=== PATIENT | female | born 1995 | race African-American/Black ===

== ENCOUNTER 2016-12-01 17:33 | Emergency (ER) | payer OTHER ==
--- NOTE | 2016-12-01 17:44 | PDOC ---
History of Present Illness - History of Present Illness Initial Comments: 12/01/16 18:08 Patient is a 21 year old female (7 weeks, LNMP 10/05/16) with no significant medical hx who is presenting to the ED with nausea and vomiting for one week. The patient endorses five episodes of vomiting today and three yesterday. She also complains of some chills but no fever, diarrhea, vaginal bleeding, or discharge. The patient notes that she often has bouts of gastritis that normally occur outside of . CARD PUNCHER: Located at [facility] in [place] No PMD, the patient moved here from [place] 2.5 years ago. Social Hx: Denies Alcohol, tobacco, and recreational drug use. /M1 (miscarriage 07/2016) <Nancy Ramsey - Last Filed: 12/01/16 18:08> <Danae Linn - Last Filed: 12/01/16 22:43> - General Chief Complaint: Pain Stated Complaint: ABD PAIN Time Seen by Provider: 12/01/16 17:41 Past History <Nancy Ramsey - Last Filed: 12/01/16 18:08> - Psycho/Social/Smoking Cessation Hx Suicidal Ideation: No Smoking History: Never smoked <Danae Linn - Last Filed: 12/01/16 22:43> - Past Medical History Allergies/Adverse Reactions: Allergies Allergy/AdvReac Type Severity Reaction Status Date / Time No Known Allergies Allergy Verified 12/01/16 17:58 Home Medications: Ambulatory Orders Ondansetron [Zofran Odt -] 4 mg SL TID PRN #21 od.tablet 12/01/16 Review of Systems - Review of Systems Comments:: 12/01/16 18:14 CONSTITUTIONAL: Reported: chills Absent: fever, diaphoresis, generalized weakness, malaise, loss of appetite HEENT: Absent: rhinorrhea, nasal congestion, throat pain, throat swelling, difficulty swallowing, mouth swelling, ear pain, eye pain, visual changes CARDIOVASCULAR: Absent: chest pain, syncope, palpitations, irregular heart rate, lightheadedness , peripheral edema RESPIRATORY: Absent: cough, shortness of breath, dyspnea with exertion, orthopnea, wheezing, stridor, hemoptysis GASTROINTESTINAL: Reported: nausea, vomiting Absent: abdominal pain, abdominal distension, diarrhea, constipation, melena, hematochezia GENITOURINARY: Absent: dysuria, frequency, urgency, hesitancy, hematuria, flank pain, genital pain MUSCULOSKELETAL: Absent: myalgia, arthralgia, joint swelling SKIN: Absent: rash, itching, pallor HEMATOLOGIC/IMMUNOLOGIC: Absent: easy bleeding, easy bruising, lymphadenopathy, frequent infections ENDOCRINE: Absent: unexplained weight gain, unexplained weight loss, heat intolerance, cold intolerance NEUROLOGIC: Absent: headache, focal weakness or paresthesia, dizziness, unsteady gait, seizure, mental status changes, bladder or bowel incontinence. PSYCHIATRIC: Absent: anxiety, depression, suicidal or homicidal ideation, hallucinations <Nancy Ramsey - Last Filed: 12/01/16 18:08> *Physical Exam - Vital Signs Last Vital Signs Temp Pulse Resp BP Pulse Ox 99.0 F 93 H 18 134/53 100 12/01/16 17:33 12/01/16 17:33 12/01/16 17:33 12/01/16 17:33 12/01/16 17:33 - Physical Exam Comments: 12/01/16 18:15 GENERAL: Well developed, well nourished. Awake and alert. No acute distress. HEENT: Normocephalic, atraumatic. PERRLA, EOMI. No conjunctival pallor. Sclera are non- icteric. Dry mucous membranes. Oropharynx is clear. NECK: Supple. Full ROM. No JVD. Carotid pulses 2+ and symmetric, without bruits. No thyromegaly. No lymphadenopathy. CARDIOVASCULAR: Regular rate and rhythm. No murmurs, rubs, or gallops. Distal pulses are 2+ and symmetric. PULMONARY: No evidence of respiratory distress. Lungs clear to auscultation bilaterally. No wheezing, rales or rhonchi. ABDOMINAL: Soft. Non-tender. Non-distended. No rebound or guarding. No organomegaly. Normoactive bowel sounds. MUSCULOSKELETAL: Normal range of motion at all joints. No bony deformities or tenderness. No CVA tenderness. EXTREMITIES: No cyanosis. No clubbing. No edema. No calf tenderness. SKIN: Warm and dry. Normal capillary refill. No rashes. No jaundice. NEUROLOGICAL: Alert, awake, appropriate. Cranial nerves 2-12 intact. Normal speech. Gait is normal without ataxia. PSYCHIATRIC: Cooperative. Good eye contact. Appropriate mood and affect. <Nancy Ramsey - Last Filed: 12/01/16 18:08> ED Treatment Course - LABORATORY CBC & Chemistry Diagram: 12/01/16 18:21 12/01/16 18:21 <Danae Linn - Last Filed: 12/01/16 22:43> Medical Decision Making - Medical Decision Making 12/01/16 21:48 21-year-old female presents with vomiting this week. She vomited 3-5 times each day. Her last menstrual period was at the end of September. She received IV fluids, antiemetics and has not vomited since arrival 12/01/16 21:59 I spoke with the radiologist Dr Wiggins and the ultrasound showed a SL IUP of 8 weeks with heart tones of 155 bpm <Danae Linn - Last Filed: 12/01/16 22:43> *DC/Admit/Observation/Transfer - Attestations Scribe Attestion: 12/01/16 18:15 Documentation prepared by Nancy Ramsey, acting as auditor medical claims for Danae Linn MD. <Nancy Ramsey - Last Filed: 12/01/16 18:08> <Danae Linn - Last Filed: 12/01/16 22:43> Diagnosis at time of Disposition: Hyperemesis gravidarum - Discharge Dispostion Disposition: HOME Condition at time of disposition: Stable - Prescriptions Prescriptions: Ondansetron [Zofran Odt -] 4 mg SL TID PRN #21 od.tablet PRN Reason: Nausea And/Or Vomiting - Patient Instructions Printed Discharge Instructions: DI for Hyperemesis Gravidarum Additional Instructions: please keep your appointment with your medical affairs director this week
[2016-12-01] MEDS ORDERED: SODIUM CHLORIDE 1,000 ML IV STA (17:53)
[2016-12-01] MEDS ORDERED: ONDANSETRON 4 MG/2 ML VIAL IVPB ONE (17:53)
[2016-12-01 17:58] VITALS: BMI 18.2
[2016-12-01] MEDS ORDERED: ONDANSETRON 4 MG/2 ML VIAL ONE (18:04)
[2016-12-01 18:38] LABS: BASOPHIL 0.3 % (0-2.0); MCH 26.4 pg (25.7-33.7); MCHC 32.1 g/dl (32.0-36.0); MEAN CELL VOLUME 82.2 fl (80-96); MEAN PLT VOLUME 9.3 fl (7.5-11.1); NEUTROPHILS 82.1 % (42.8-82.8); PLATELET COUNT 293 K/MM3 (134-434); RDW 12.9 % (11.6-15.6); WHITE BLOOD COUNT 16.2 K/mm3 (4.0-10.0)
[2016-12-01 19:06] LABS: URINE APPEARANCE SLCLOUDY; URINE BILIRUBIN NEGATIVE (NEGATIVE); URINE BLOOD NEGATIVE (NEGATIVE); URINE COLOR YELLOW; URINE GLUCOSE (UA) NEGATIVE (NEGATIVE); URINE KETONE 2+ (NEGATIVE); URINE LEUK ESTERASE NEGATIVE (NEGATIVE); URINE NITRITE NEGATIVE (NEGATIVE); URINE UROBILINOGEN NEGATIVE E.U./dl (0.2-1.0)
[2016-12-01 19:08] LABS: ALBUMIN 4.4 g/dl (3.4-5.0); ANION GAP 11 (8-16); BILIRUBIN,TOTAL 0.7 mg/dL (0.2-1.0); CALCIUM 9.4 mg/dL (8.5-10.1); CO2 24 mmol/L (21-32); CREATININE 0.7 mg/dL (0.55-1.02); GLUCOSE,RANDOM 106 mg/dL (74-106); SGOT/AST 21 U/L (15-37); SGPT/ALT 16 U/L (12-78); TOT PROT 7.9 g/dl (6.4-8.2)
[2016-12-01 19:09] LABS: ALK PHOS 49 U/L (45-117)
[2016-12-01 19:53] LABS: URINE PROTEIN 1+ (NEGATIVE)
[2016-12-01 20:39] LABS: URINE MUCUS RARE; URINE RBC 8 /hpf (0-3); URINE WBC 4 /hpf (3-5)
[2016-12-01 21:57] VITALS: BP 102/64; PULSE 89; TEMP 98
== END 2016-12-01 22:00 | disposition home or self-care (01) ==
LOC: JER 17:33
PROC: 3E0337Z Introduction of Electrolytic and Water Balance Substance into Peripheral Vein, Percutaneous Approach (ICD-10-PCS; principal; 2016-12-01)
PROC: 3E033GC Introduction of Other Therapeutic Substance into Peripheral Vein, Percutaneous Approach (ICD-10-PCS; 2016-12-01)
DX: O21.0 Mild hyperemesis gravidarum (principal); Z3A.08 8 weeks gestation of pregnancy
CPT/HCPCS: 36415; 76801-TC; 80053; 81003; 81015; 83690; 84702; 85025; 99282-25

== ENCOUNTER 2016-12-02 21:44 | Emergency (ER) | payer OTHER ==
[2016-12-02 21:55] VITALS: BP 127/77; PULSE 85; TEMP 98.7; BMI 18.2
--- NOTE | 2016-12-02 22:02 | PDOC ---
History of Present Illness - General History Source: Patient Exam Limitations: No Limitations - History of Present Illness Initial Comments: 12/02/16 22:21 The patient is a 21 year old female (8 weeks, A1, miscarriage 2015) with significant past medical history of depression who presents to the ED for persistent nausea and vomiting. Patient was seen yesterday for 1 week of nausea and persistent vomiting, where she had a ultrasound that revealed SL IUP of 8 weeks with heart tones of 155 bpm. She was treated and discharged with zofran and to follow up with video game script writer. Patient returns today for persistent nausea and vomiting. States she had 5 episodes of vomiting today. Took zofran around 7pm with improvement. She also has complaints of no appetite, chills and diaphoresis. No reported fever. Patient reports feeling depressed and sad, which she states is normal for her because she normally experiences intermittent episodes of depression since she was the age of 16. Her partner is currently at bedside. Denies homicidal or suicidal ideation. The patient denies cough, SOB, chest pain, palpitations, abdominal pain and diarrhea. The patient denies dysuria, hematuria, urgency, frequency and vaginal bleeding/ discharge. LMP was 10/05/16 Allergies: NKDA Social History: No alcohol, tobacco, or drug use reported. Past Surgical History: None reported No PMD, the patient moved here from [place] 2.5 years ago POT PUNCHER: Located at [facility] in [place] <Yary Murray - Last Filed: 12/02/16 22:21> - General History Source: Patient <John Vincent - Last Filed: 12/03/16 00:04> - General Chief Complaint: Weakness Stated Complaint: WEAKNESS Time Seen by Provider: 12/02/16 21:55 Past History <Yary Murray - Last Filed: 12/02/16 22:21> - Past Medical History Anemia: No Asthma: No - Psycho/Social/Smoking Cessation Hx Anxiety: No Suicidal Ideation: No Smoking History: Never smoked Have you smoked in the past 12 months: No Information on smoking cessation initiated: No Hx Alcohol Use: No Drug/Substance Use Hx: No Substance Use Type: None <John Vincent - Last Filed: 12/03/16 00:04> - Past Medical History Allergies/Adverse Reactions: Allergies Allergy/AdvReac Type Severity Reaction Status Date / Time No Known Allergies Allergy Verified 12/02/16 21:51 Home Medications: Ambulatory Orders Ondansetron [Zofran Odt -] 4 mg SL TID PRN #21 od.tablet 12/01/16 Metoclopramide HCl [Reglan -] 10 mg PO TID #30 tablet 12/03/16 Review of Systems - Review of Systems Able to Perform ROS?: Yes Comments:: 12/02/16 22:22 CONSTITUTIONAL: +decreased appetite, chills, diaphoresis Absent: fever, no fatigue EYES: Absent: visual changes ENT: Absent: ear pain, no sore throat CARDIOVASCULAR: Absent: chest pain, no palpitations RESPIRATORY: Absent: cough, no SOB GI: +nausea, vomiting Absent: abdominal pain, no constipation, no diarrhea GENITOURINARY: Absent: dysuria, no frequency, no hematuria MUSCULOSKELETAL: Absent: back pain, no arthralgia, no myalgia SKIN: Absent: rash NEURO: Absent: headache PSYCHIATRIC: +depression Absent: anxiety,suicidal or homicidal ideation. <Yary Murray - Last Filed: 12/02/16 22:21> *Physical Exam - Vital Signs Last Vital Signs Temp Pulse Resp BP Pulse Ox 98.7 F 85 18 127/77 100 12/02/16 21:48 12/02/16 21:48 12/02/16 21:48 12/02/16 21:48 12/02/16 21:48 - Physical Exam Comments: 12/02/16 22:22 GENERAL: Well-appearing, well-nourished. No apparent distress. HEENT: Normocephalic, atraumatic. PERRL, EOM intact. CARDIOVASCULAR: Normal S1, S2. Regular rate and rhythm. PULMONARY: Clear to auscultation bilaterally. ABDOMEN: Soft, non-distended, non-tender. EXTREMITIES: Normal ROM in all four extremities. No gross deformities. SKIN: Warm, dry. No rash NEUROLOGICAL: No focal neurological deficits. PSYCHIATRIC: Cooperative. Good eye contact. Appropriate mood and affect. <Yary Murray - Last Filed: 12/02/16 22:21> - Vital Signs Last Vital Signs Temp Pulse Resp BP Pulse Ox 98.7 F 85 18 127/77 100 12/02/16 21:48 12/02/16 21:48 12/02/16 21:48 12/02/16 21:48 12/02/16 21:48 <John Vincent - Last Filed: 12/03/16 00:04> ED Treatment Course - LABORATORY CBC & Chemistry Diagram: 12/02/16 22:33 12/02/16 22:33 <John Vincent - Last Filed: 12/03/16 00:04> Medical Decision Making - Medical Decision Making 12/03/16 00:02 Dr. Vincent: The scribe's documentation has been prepared under my direction and personally reviewed by me in its entirery. I confirm that the note above accurately reflects all work, treatment, procedures, and medical decision making performed by me. <John Vincent - Last Filed: 12/03/16 00:04> *DC/Admit/Observation/Transfer - Attestations Scribe Attestion: 12/02/16 22:22 Documentation prepared by Yary Murray, acting as medical pathology teacher for John Vincent MD <Yary Murray - Last Filed: 12/02/16 22:21> - Discharge Dispostion Admit: No <John Vincent - Last Filed: 12/03/16 00:04> Diagnosis at time of Disposition: Hyperemesis gravidarum - Discharge Dispostion Disposition: HOME Condition at time of disposition: Stable - Referrals Referrals: STAFF,NOT ON [Primary Care Provider] - Beto Cavazos MD [Staff Physician] - - Patient Instructions Printed Discharge Instructions: DI for Hyperemesis Gravidarum Additional Instructions: Please follow up with your doctor or the doctor referred to you in the ER. Take medications as directed. Follow up with a therapist as soon as possible
[2016-12-02] MEDS ORDERED: SODIUM CHLORIDE 1,000 ML IV STA ×2 (22:15)
[2016-12-02 22:41] LABS: BASOPHIL 0.4 % (0-2.0); EOSINOPHIL 0.5 % (0-4.5); MCH 26.4 pg (25.7-33.7); MCHC 32.3 g/dl (32.0-36.0); MEAN CELL VOLUME 81.9 fl (80-96); MEAN PLT VOLUME 8.6 fl (7.5-11.1); NEUTROPHILS 71.4 % (42.8-82.8); PLATELET COUNT 214 K/MM3 (134-434); RDW 12.9 % (11.6-15.6)
[2016-12-02 23:28] LABS: COCKROFT - GAULT 107.525; CREATININE 0.6 mg/dL (0.55-1.02); GLUCOSE,RANDOM 81 mg/dL (74-106)
[2016-12-02 23:29] LABS: ALBUMIN 3.7 g/dl (3.4-5.0); ALK PHOS 42 U/L (45-117); ANION GAP 14 (8-16); BILIRUBIN,TOTAL 0.5 mg/dL (0.2-1.0); CO2 24 mmol/L (21-32); SGOT/AST 14 U/L (15-37); SGPT/ALT 16 U/L (12-78); TOT PROT 6.8 g/dl (6.4-8.2)
[2016-12-02] MEDS ORDERED: POTASSIUM CHLORIDE TABS 20 MEQ TABLET.ER (FP) PO ONE (23:57)
[2016-12-03] MEDS ORDERED: POTASSIUM CHLORIDE TABS 20 MEQ TABLET.ER (FP) PO ONE (00:11)
== END 2016-12-03 00:15 | disposition home or self-care (01) ==
LOC: SUPCPDRO 21:44 → JER 21:44
PROC: 3E0337Z Introduction of Electrolytic and Water Balance Substance into Peripheral Vein, Percutaneous Approach (ICD-10-PCS; principal; 2016-12-02)
DX: O21.0 Mild hyperemesis gravidarum (principal); Z3A.08 8 weeks gestation of pregnancy
CPT/HCPCS: 36415; 80053; 83690; 83735; 85025; 86850; 86900; 86901; 99284-25

== ENCOUNTER 2016-12-24 20:51 | Emergency (ER) | payer OTHER ==
[2016-12-24 21:03] VITALS: BMI 17.2
--- NOTE | 2016-12-24 21:49 | PDOC ---
History of Present Illness - General Chief Complaint: Nausea/Vomiting Stated Complaint: WEAKNESS Time Seen by Provider: 12/24/16 21:18 - History of Present Illness Initial Comments: 12/24/16 21:48 21 yo F with recent miscarriage currently 11 weeks by LMP, here wtih nausea, vomiting and today had a syncopal episode. no mod factors. no urinary complaints. was feeling lightheaded just prior., did not hit head. breif LOC. Past History - Past Medical History Allergies/Adverse Reactions: Allergies Allergy/AdvReac Type Severity Reaction Status Date / Time No Known Allergies Allergy Verified 12/24/16 22:34 Home Medications: Ambulatory Orders Ondansetron [Zofran Odt -] 4 mg SL TID PRN #21 od.tablet 12/01/16 Anemia: No Asthma: No - Reproductive History (#): 2 Para: 0 Spontaneous : 1 - Psycho/Social/Smoking Cessation Hx Anxiety: No Suicidal Ideation: No Smoking History: Never smoked Have you smoked in the past 12 months: No Hx Alcohol Use: No Drug/Substance Use Hx: No Substance Use Type: None Review of Systems - Review of Systems Constitutional: No: Chills, Diaphoresis, Fever HEENTM: No: Eye Pain Respiratory: No: Cough, Orthopnea, Shortness of Breath ABD/GI: Yes: Nausea, Vomiting. No: Abdominal Distended, Difficulty Swallowing, Poor Appetite : No: Burning, Dysuria, Discharge Integumentary: No: Bruising Neurological: No: Headache, Numbness Psychiatric: No: Frequent Crying All Other Systems: Reviewed and Negative *Physical Exam - Vital Signs Last Vital Signs Temp Pulse Resp BP Pulse Ox 99.5 F 101 H 18 120/67 100 12/24/16 21:01 12/24/16 21:01 12/24/16 21:01 12/24/16 21:01 12/24/16 21:01 - Physical Exam General Appearance: Yes: Appropriately Dressed HEENT: positive: EOMI Neck: positive: Trachea midline Respiratory/Chest: positive: Lungs Clear, Normal Breath Sounds Cardiovascular: positive: Regular Rhythm, Regular Rate, S1, S2 Gastrointestinal/Abdominal: positive: Normal Bowel Sounds. negative: Tender, Flat, Soft Integumentary: positive: Normal Color, Dry, Warm Neurologic: positive: pumper head II-XII NML intact, Fully Oriented, Alert, Normal Mood/ Affect ED Treatment Course - LABORATORY CBC & Chemistry Diagram: 12/24/16 22:30 12/24/16 22:32 Medical Decision Making - Medical Decision Making 12/24/16 21:50 21 yo F currently 11 weeks here with intractable n/v and syncope. differential: hyperemesis, electrolyte abnormality, dehydration hypokalemia, acidosis. plan labs hydration antiemetics, iv hydration reassess. possible admission if unable to tolerate PO. 12/25/16 01:15 pt feeling improved. dc home tolerating PO. hydrated with IVF. has appointment for followup with OB tomrrow am. *DC/Admit/Observation/Transfer Diagnosis at time of Disposition: Hyperemesis - Discharge Dispostion Disposition: HOME Condition at time of disposition: Improved - Patient Instructions Printed Discharge Instructions: DI for Vomiting -- Adult
[2016-12-24] MEDS ORDERED: SODIUM CHLORIDE 1,000 ML IV STA (21:53)
[2016-12-24] MEDS ORDERED: ONDANSETRON 4 MG/2 ML VIAL IVPUSH ONE (21:54)
[2016-12-24] MEDS ORDERED: ONDANSETRON 4 MG/2 ML VIAL ONE (22:22)
[2016-12-24 22:51] LABS: BASOPHIL 0.2 % (0-2.0); EOSINOPHIL 0.2 % (0-4.5); MCH 26.1 pg (25.7-33.7); MCHC 32.6 g/dl (32.0-36.0); NEUTROPHILS 78.3 % (42.8-82.8); PLATELET COUNT 246 K/MM3 (134-434); RDW 13.1 % (11.6-15.6); WHITE BLOOD COUNT 12.4 K/mm3 (4.0-10.0)
[2016-12-24 23:43] LABS: URINE APPEARANCE SLCLOUDY; URINE BILIRUBIN NEGATIVE (NEGATIVE); URINE BLOOD NEGATIVE (NEGATIVE); URINE COLOR YELLOW; URINE GLUCOSE (UA) NEGATIVE (NEGATIVE); URINE KETONE 2+ (NEGATIVE); URINE NITRITE NEGATIVE (NEGATIVE); URINE UROBILINOGEN NEGATIVE E.U./dl (0.2-1.0)
[2016-12-25] MEDS ORDERED: ONDANSETRON 4 MG/2 ML VIAL IVPUSH ONE (00:11)
[2016-12-25] MEDS ORDERED: ONDANSETRON 4 MG/2 ML VIAL ONE (00:57)
[2016-12-25 00:58] LABS: ALBUMIN 4.2 g/dl (3.4-5.0); ANION GAP 13 (8-16); BILIRUBIN,TOTAL 0.6 mg/dL (0.2-1.0); CALCIUM 9.3 mg/dL (8.5-10.1); CO2 28 mmol/L (21-32); COCKROFT - GAULT 86.8105; CREATININE 0.7 mg/dL (0.55-1.02); GLUCOSE,RANDOM 84 mg/dL (74-106); SGOT/AST 19 U/L (15-37); SGPT/ALT 14 U/L (12-78); TOT PROT 7.4 g/dl (6.4-8.2)
[2016-12-25 00:59] LABS: ALK PHOS 46 U/L (45-117)
[2016-12-25 01:06] LABS: URINE LEUK ESTERASE 1+ (NEGATIVE); URINE PROTEIN 2+ (NEGATIVE)
[2016-12-25 01:21] VITALS: BP 122/74; PULSE 80; TEMP 98.8
[2016-12-25 02:07] LABS: URINE BACTERIA RARE /hpf (NONE SEEN); URINE MUCUS MODERATE; URINE RBC 4 /hpf (0-3); URINE WBC 27 /hpf (3-5)
[2016-12-25 02:12] LABS: ACETONE SERUM NEGATIVE (NEGATIVE)
== END 2016-12-25 01:21 | disposition home or self-care (01) ==
LOC: JER 20:51
PROC: 3E033GC Introduction of Other Therapeutic Substance into Peripheral Vein, Percutaneous Approach (ICD-10-PCS; principal; 2016-12-24)
DX: O21.0 Mild hyperemesis gravidarum (principal); Z3A.11 11 weeks gestation of pregnancy
CPT/HCPCS: 36415; 80053; 81003; 81015; 82009; 84702; 85025; 99282-25

== ENCOUNTER 2017-01-06 07:13 | Emergency (ER) | payer OTHER ==
[2017-01-06 07:21] VITALS: TEMP 98.3; BMI 17.6
[2017-01-06] MEDS ORDERED: ONDANSETRON 4 MG/2 ML VIAL IVPUSH ONE ×2 (07:39→09:47)
[2017-01-06] MEDS ORDERED: ONDANSETRON 4 MG/2 ML VIAL ONE ×2 (07:45→10:07)
[2017-01-06] MEDS ORDERED: DEXTROSE 5%-0.45% SALINE 1,000 ML IV SCH (07:45)
--- NOTE | 2017-01-06 07:45 | PDOC ---
History of Present Illness - General Chief Complaint: Weakness Stated Complaint: 13 WEEKS PREG, NEAR SYNCOPE Time Seen by Provider: 01/06/17 07:27 History Source: Patient - History of Present Illness Timing/Duration: reports: constant Past History - Past Medical History Allergies/Adverse Reactions: Allergies Allergy/AdvReac Type Severity Reaction Status Date / Time No Known Allergies Allergy Verified 01/06/17 07:18 Home Medications: Ambulatory Orders Metoclopramide HCl [Reglan] 10 mg PO Q8H #20 tablet 01/06/17 Anemia: No Asthma: No Other medical history: DENIES - Reproductive History (#): 2 Para: 0 Spontaneous : 1 - Psycho/Social/Smoking Cessation Hx Anxiety: No Suicidal Ideation: No Smoking History: Never smoked Have you smoked in the past 12 months: No Hx Alcohol Use: No Drug/Substance Use Hx: No Substance Use Type: None Review of Systems - Review of Systems Constitutional: No: Chills, Fever ABD/GI: Yes: Nausea, Vomiting. No: Abdominal cramping : No: Burning, Hematuria *Physical Exam - Vital Signs Last Vital Signs Temp Pulse Resp BP Pulse Ox 98.3 F 98 H 20 128/67 100 01/06/17 07:15 01/06/17 07:15 01/06/17 07:15 01/06/17 07:15 01/06/17 07:15 - Physical Exam General Appearance: Yes: Appropriately Dressed. No: Apparent Distress HEENT: positive: Normal Voice Neck: positive: Supple Respiratory/Chest: negative: Respiratory Distress Cardiovascular: positive: Regular Rate, S1, S2 Gastrointestinal/Abdominal: positive: Soft. negative: Tender Integumentary: positive: Dry, Warm Neurologic: positive: Fully Oriented, Alert, Normal Mood/Affect ED Treatment Course - LABORATORY CBC & Chemistry Diagram: 01/06/17 08:15 01/06/17 08:15 Medical Decision Making - Medical Decision Making 01/06/17 07:40 21-year-old female, (1 spon ab), approximately 13 weeks with care demonstrating + IUP, multiple ED visits for hyperemesis, on Zofran at home, which does not help with symptoms and unable to afford diclegis , now returns with n/v. As per patient continues to have ~3-4 e/o n/v on a daily basis and barely able to tolerate po. This a.m. awoke feeling generally weak and dizzy and felt like she was going to pass out but did not. Denies any acute abdominal pain, dysuria, vaginal bleeding, fever or chills. No CP or SOB. Scheduled for next in one week. States when she comes to ED and gets IV meds, that she usually feels significantly better See exam 1st trimester w/ hyperemesis/dehydration Multiple ED visits for same Zofran not helping at home Unable to afford diclegis Stable and well dangelo w/ unremarkable exam -IVF -antiemetic -check electrolytes/ua -reassess 01/06/17 07:46 01/06/17 07:48 01/06/17 07:59 01/06/17 11:07 Pt reports improvement in sxs and able to steven po in ED. Dc w/ supportive tx and OB f/u *DC/Admit/Observation/Transfer Diagnosis at time of Disposition: Hyperemesis gravidarum - Discharge Dispostion Disposition: HOME Condition at time of disposition: Improved - Prescriptions Prescriptions: Metoclopramide HCl [Reglan] 10 mg PO Q8H #20 tablet - Referrals Referrals: Patrick Kahn MD [Primary Care Provider] - - Patient Instructions Printed Discharge Instructions: Hyperemesis Gravidarum Additional Instructions: Take medication as prescribed and follow-up with your OB In order to minimize nausea and vomiting, start with a diet consisting of mostly bananas, rice, applesauce and toast and then advance your diet as tolerated. Consistent protein intake is jc in preventing nausea Maintain adequate hydration. Return to ER for worsening of symptoms
[2017-01-06 08:47] LABS: ALBUMIN 3.7 g/dl (3.4-5.0); ANION GAP 6 (8-16); CALCIUM 9.5 mg/dL (8.5-10.1); CO2 27 mmol/L (21-32); GLUCOSE,RANDOM 91 mg/dL (74-106)
[2017-01-06 09:02] LABS: URINE APPEARANCE CLEAR; URINE BILIRUBIN NEGATIVE (NEGATIVE); URINE BLOOD NEGATIVE (NEGATIVE); URINE COLOR YELLOW; URINE GLUCOSE (UA) NEGATIVE (NEGATIVE); URINE KETONE NEGATIVE (NEGATIVE); URINE NITRITE NEGATIVE (NEGATIVE); URINE UROBILINOGEN NEGATIVE E.U./dl (0.2-1.0)
[2017-01-06 09:14] LABS: ALK PHOS 45 U/L (45-117); BILIRUBIN,TOTAL 0.6 mg/dL (0.2-1.0); COCKROFT - GAULT 89.4965; CREATININE 0.7 mg/dL (0.55-1.02); SGOT/AST 20 U/L (15-37); SGPT/ALT 19 U/L (12-78)
[2017-01-06 09:21] LABS: URINE LEUK ESTERASE TRACE (NEGATIVE); URINE PROTEIN 1+ (NEGATIVE)
[2017-01-06 09:23] LABS: URINE MUCUS RARE; URINE RBC <1 /hpf (0-3); URINE WBC 5 /hpf (3-5)
[2017-01-06] MEDS ORDERED: SODIUM CHLORIDE 1,000 ML IV STA (09:47)
[2017-01-06 09:55] LABS: TOT PROT 7.1 g/dl (6.4-8.2)
--- NOTE | 2017-01-06 10:08 | PDOC ---
*Physical Exam - Vital Signs Last Vital Signs Temp Pulse Resp BP Pulse Ox 98.3 F 98 H 20 128/67 100 01/06/17 07:15 01/06/17 07:15 01/06/17 07:15 01/06/17 07:15 01/06/17 07:15 ED Treatment Course - LABORATORY CBC & Chemistry Diagram: 01/06/17 08:15 01/06/17 08:15 - ADDITIONAL ORDERS Additional order review: Laboratory Results 01/06/17 01/06/17 08:40 08:15 Sodium 135 L Potassium 3.8 Chloride 102 Carbon Dioxide 27 Anion Gap 6 L BUN 8 Creatinine 0.7 Creat Clearance w eGFR > 60 Random Glucose 91 Calcium 9.5 Total Bilirubin 0.6 AST 20 ALT 19 D Alkaline Phosphatase 45 Total Protein 7.1 Albumin 3.7 Urine Color Yellow Urine Appearance Clear Urine pH 8.0 Urine Protein 1+ H Urine Glucose (UA) Negative Urine Ketones Negative Urine Blood Negative Urine Nitrite Negative Urine Bilirubin Negative Urine Urobilinogen Negative Ur Leukocyte Esterase Trace H D Urine RBC <1 Urine WBC 5 Ur Epithelial Cells Rare Urine Mucus Rare - Medications Given in the ED: ED Medications Discontinued Medications Generic Name Dose Route Start Last Admin Trade Name Freq PRN Reason Stop Dose Admin Ondansetron HCl 4 mg 01/06/17 07:39 01/06/17 07:47 Zofran Injection IVPUSH 01/06/17 07:40 4 mg ONCE ONE Administration Medical Decision Making - Medical Decision Making 01/06/17 10:01 Patient seen and evaluated with the nurse practitioner. I agree with the overall evaluation, assessment, and management with the following summary of visit: 21-year-old female secondary trimester with intractable vomiting resents with persistent vomiting and generalized weakness. Taking Zofran, has been prescribed a new medication that she cannot afford. labs, ua, ivf, anti-emetic reassess case management to assist with obtaining new prescription *DC/Admit/Observation/Transfer Diagnosis at time of Disposition: Hyperemesis gravidarum - Referrals Referrals: Patrick Kahn MD [Primary Care Provider] - - Patient Instructions Additional Instructions: Take medication as prescribed and follow-up with your OB In order to minimize nausea and vomiting, start with a diet consisting of mostly bananas, rice, applesauce and toast and then advance your diet as tolerated. Consistent protein intake is jc in preventing nausea Maintain adequate hydration. Return to ER for worsening of symptoms - Post Discharge Activity
[2017-01-06 10:31] LABS: BASOPHIL 0.3 % (0-2.0); EOSINOPHIL 0.4 % (0-4.5); MCH 27.2 pg (25.7-33.7); MCHC 32.9 g/dl (32.0-36.0); MEAN CELL VOLUME 82.6 fl (80-96); NEUTROPHILS 81.8 % (42.8-82.8); PLATELET COUNT 245 K/MM3 (134-434); RDW 13.6 % (11.6-15.6); WHITE BLOOD COUNT 11.9 K/mm3 (4.0-10.0)
[2017-01-06 11:00] VITALS: BP 99/59; PULSE 82
== END 2017-01-06 11:16 | disposition home or self-care (01) ==
LOC: JER 07:13
PROC: 3E033GC Introduction of Other Therapeutic Substance into Peripheral Vein, Percutaneous Approach (ICD-10-PCS; principal; 2017-01-06)
PROC: 3E0337Z Introduction of Electrolytic and Water Balance Substance into Peripheral Vein, Percutaneous Approach (ICD-10-PCS; 2017-01-06)
DX: O26.891 Other specified pregnancy related conditions, first trimester (principal); Z3A.13 13 weeks gestation of pregnancy; O21.0 Mild hyperemesis gravidarum
CPT/HCPCS: 36415; 80053; 81003; 81015; 85025; 99282-25

== ENCOUNTER 2017-01-11 13:31 | Emergency (ER) | payer OTHER ==
[2017-01-11 13:36] VITALS: TEMP 97.6; BMI 16.9
--- NOTE | 2017-01-11 14:08 | PDOC ---
History of Present Illness - General History Source: Patient, Old Records Exam Limitations: No Limitations <Roxanne Sheridan - Last Filed: 01/11/17 15:30> - General History Source: Patient Exam Limitations: No Limitations - History of Present Illness Initial Comments: 01/11/17 14:44 The patient is a 21-year-old [id number], estimated 13 weeks with no past medical history who presents to the emergency department with complaints of persistent vomiting. No fever, chills, new foods, sick contacts. No hematemesis. Patient has been evaluated several times for similar complaints. She was in her Cmm Programmer's office this morning, with complaints of nausea s.p she had outpatient labs drawn, ultrasound performed and was given oral Zofran with no relief. She states that only IV Zofran works for her. No other complaints. She denies fever, chills, diaphoresis, generalized weakness. She denies chest pain, shortness of breath, cough She denies abdominal pain, diarrhea, dysuria, hematuria, urinary frequency and urgency, flank pain, vaginal discharge/vaginal bleeding Allergies: No Known Drug Allergies Past Surgical History: None reported. Social History: No tobacco, EtOH and recreational drug use. Cmm Programmer: Affiliated with [facility]. <Kristine Bettencourt - Last Filed: 01/11/17 16:27> <Danae Linn - Last Filed: 01/11/17 18:16> - General Chief Complaint: Nausea/Vomiting Stated Complaint: DEHYDRATED, 13 WKS Time Seen by Provider: 01/11/17 14:01 Past History - Past Medical History Anemia: No Asthma: No Other medical history: none - Reproductive History (#): 2 Para: 0 Spontaneous : 1 - Psycho/Social/Smoking Cessation Hx Anxiety: No Suicidal Ideation: No Smoking History: Never smoked Have you smoked in the past 12 months: No Information on smoking cessation initiated: No Hx Alcohol Use: No Drug/Substance Use Hx: No Substance Use Type: None <Roxanne Sheridan - Last Filed: 01/11/17 15:30> <Kristine Bettencourt - Last Filed: 01/11/17 16:27> <Danae Linn - Last Filed: 01/11/17 18:16> - Past Medical History Allergies/Adverse Reactions: Allergies Allergy/AdvReac Type Severity Reaction Status Date / Time No Known Allergies Allergy Verified 01/11/17 13:33 Home Medications: Ambulatory Orders Metoclopramide HCl [Reglan] 10 mg PO Q8H #20 tablet 01/06/17 Review of Systems - Review of Systems Able to Perform ROS?: Yes Comments:: 01/11/17 14:44 GENERAL/CONSTITUTIONAL: No fever or chills. No weakness. HEAD, EYES, EARS, NOSE AND THROAT: No change in vision. No ear pain or discharge. No sore throat. CARDIOVASCULAR: No chest pain or shortness of breath. RESPIRATORY: No cough, wheezing, or hemoptysis. GASTROINTESTINAL: Yes: Nausea. Vomiting. No abdominal pain, diarrhea or constipation. GENITOURINARY: No dysuria, frequency, or change in urination. MUSCULOSKELETAL: No joint or muscle swelling or pain. No neck or back pain. SKIN: No rash NEUROLOGIC: No headache, vertigo, loss of consciousness, or change in strength/ sensation. ENDOCRINE: No increased thirst. No abnormal weight change. HEMATOLOGIC/LYMPHATIC: No anemia, easy bleeding, or history of blood clots. ALLERGIC/IMMUNOLOGIC: No hives or skin allergy. <Kristine Bettencourt - Last Filed: 01/11/17 16:27> *Physical Exam - Vital Signs Last Vital Signs Temp Pulse Resp BP Pulse Ox 97.6 F 75 18 130/80 100 01/11/17 13:35 01/11/17 13:35 01/11/17 13:35 01/11/17 13:35 01/11/17 13:35 <Roxanne Sheridan - Last Filed: 01/11/17 15:30> - Vital Signs Last Vital Signs Temp Pulse Resp BP Pulse Ox 97.6 F 75 18 130/80 100 01/11/17 13:35 01/11/17 13:35 01/11/17 13:35 01/11/17 13:35 01/11/17 13:35 - Physical Exam Comments: 01/11/17 14:44 GENERAL: Awake, alert, and fully oriented, in no acute distress HEAD: No signs of trauma EYES: PERRLA, EOMI, sclera anicteric, conjunctiva clear ENT: Auricles normal inspection, hearing grossly normal, nares patent, oropharynx clear without exudates. Moist mucosa NECK: Normal ROM, supple, no lymphadenopathy, JVD, or masses LUNGS: Breath sounds equal, clear to auscultation bilaterally. No wheezes, and no crackles HEART: Regular rate and rhythm, normal S1 and S2, no murmurs, rubs or gallops ABDOMEN: Soft, nontender, normoactive bowel sounds. No guarding, no rebound. No masses EXTREMITIES: Normal range of motion, no edema. No clubbing or cyanosis. No cords, erythema, or tenderness NEUROLOGICAL: Cranial nerves II through XII grossly intact. Normal speech, normal gait. <Kristine Bettencourt - Last Filed: 01/11/17 16:27> - Vital Signs Last Vital Signs Temp Pulse Resp BP Pulse Ox 97.6 F 75 18 130/80 100 01/11/17 13:35 01/11/17 13:35 01/11/17 13:35 01/11/17 13:35 01/11/17 13:35 <Danae Linn - Last Filed: 01/11/17 18:16> ED Treatment Course - LABORATORY CBC & Chemistry Diagram: 01/11/17 14:00 01/11/17 14:00 <Roxanne Sheridan - Last Filed: 01/11/17 15:30> - LABORATORY CBC & Chemistry Diagram: 01/11/17 14:00 01/11/17 14:00 <Kristine Bettencourt - Last Filed: 01/11/17 16:27> - LABORATORY CBC & Chemistry Diagram: 01/11/17 14:00 01/11/17 14:00 - ADDITIONAL ORDERS Additional order review: Laboratory Results 01/11/17 14:00 Sodium 133 L Potassium 4.3 Chloride 94 L Carbon Dioxide 25 Anion Gap 14 BUN 10 D Creatinine 0.6 Random Glucose 80 Calcium 9.7 Phosphorus 4.4 Magnesium 2.0 01/11/17 14:00 RBC 4.75 MCV 80.8 MCHC 33.1 RDW 13.5 MPV 8.7 Neutrophils % 86.9 H Lymphocytes % 8.5 D Monocytes % 4.2 Eosinophils % 0.1 Basophils % 0.3 - Medications Given in the ED: ED Medications Discontinued Medications Generic Name Dose Route Start Last Admin Trade Name Freq PRN Reason Stop Dose Admin Sodium Chloride 1,000 mls @ 1,000 mls/hr 01/11/17 14:09 01/11/17 15:05 Normal Saline - IV 01/11/17 15:08 1,000 mls/hr ASDIR STA Administration Sodium Chloride 1,000 mls @ 1,000 mls/hr 01/11/17 16:21 01/11/17 17:10 Normal Saline - IV 01/11/17 17:20 1,000 mls/hr ASDIR STA Administration Sodium Chloride 1,000 mls @ 1,000 mls/hr 01/11/17 16:37 01/11/17 17:43 Normal Saline - IV 01/11/17 17:36 1,000 mls/hr ASDIR STA Administration Ondansetron HCl 4 mg 01/11/17 14:09 01/11/17 15:05 Zofran Injection IVPUSH 01/11/17 14:10 4 mg ONCE ONE Administration <Danae Linn - Last Filed: 01/11/17 18:16> Medical Decision Making - Medical Decision Making 01/11/17 15:30 21-year-old female 2 para 0 LMP PE September 2016 presents to the emergency department with complaints of persistent nausea and vomiting. She was seen at her GYNs office just prior to arrival here and had an ultrasound. The patient has a prior documented IUP and her vital signs are within normal limits. Differential diagnosis includes but is not limited to: Hyperemesis gravidarum, electrolyte abnormality, dehydration, toxic/metabolic derangement. Plan: 1. Labs 2. IV fluids for hydration 3. Zofran 4. Urine analysis 5. Observe and reevaluate <Roxanne Sheridan - Last Filed: 01/11/17 15:30> *DC/Admit/Observation/Transfer - Discharge Dispostion Admit: No - Attestations Physician Attestion: 01/11/17 15:32 I, Dr. Roxanne Sheridan, attest that the scribes documentation that appears above has been prepared under my direction and personally reviewed by me in its entirety. I confirmed that the note above accurately reflects all work, treatment, procedures, and medical decision-making performed by me. <Roxanne Sheridan - Last Filed: 01/11/17 15:30> - Attestations Scribe Attestion: 01/11/17 14:44 Documentation prepared by Kristine Bettencourt, acting as medical dermatologist for Roxanne Sheridan MD. <Kristine Bettencourt - Last Filed: 01/11/17 16:27> <Danae Linn - Last Filed: 01/11/17 18:16> Diagnosis at time of Disposition: Hyperemesis gravidarum - Discharge Dispostion Disposition: HOME Condition at time of disposition: Stable - Patient Instructions Additional Instructions: please continue your care
[2017-01-11] MEDS ORDERED: SODIUM CHLORIDE 1,000 ML IV STA ×3 (14:09→16:37)
[2017-01-11] MEDS ORDERED: ONDANSETRON 4 MG/2 ML VIAL IVPUSH ONE ×2 (14:09→18:17)
[2017-01-11] MEDS ORDERED: ONDANSETRON 4 MG/2 ML VIAL ONE ×2 (14:23→18:15)
[2017-01-11 14:57] LABS: BASOPHIL 0.3 % (0-2.0); EOSINOPHIL 0.1 % (0-4.5); MCH 26.7 pg (25.7-33.7); MCHC 33.1 g/dl (32.0-36.0); MEAN CELL VOLUME 80.8 fl (80-96); MEAN PLT VOLUME 8.7 fl (7.5-11.1); NEUTROPHILS 86.9 % (42.8-82.8); PLATELET COUNT 259 K/MM3 (134-434); RDW 13.5 % (11.6-15.6); WHITE BLOOD COUNT 13.3 K/mm3 (4.0-10.0)
[2017-01-11 15:31] LABS: ANION GAP 14 (8-16); CALCIUM 9.7 mg/dL (8.5-10.1); CO2 25 mmol/L (21-32); COCKROFT - GAULT 100.2405; CREATININE 0.6 mg/dL (0.55-1.02); GLUCOSE,RANDOM 80 mg/dL (74-106); PHOSPHOROUS 4.4 mg/dL (2.5-4.9)
[2017-01-11 18:42] VITALS: BP 107/63; PULSE 63
[2017-01-11 19:49] LABS: ACETONE SERUM NEGATIVE (NEGATIVE)
== END 2017-01-11 18:42 | disposition home or self-care (01) ==
LOC: JER 13:31
PROC: 3E0337Z Introduction of Electrolytic and Water Balance Substance into Peripheral Vein, Percutaneous Approach (ICD-10-PCS; principal; 2017-01-11)
PROC: 3E033GC Introduction of Other Therapeutic Substance into Peripheral Vein, Percutaneous Approach (ICD-10-PCS; 2017-01-11)
DX: O26.891 Other specified pregnancy related conditions, first trimester (principal); O21.0 Mild hyperemesis gravidarum; Z3A.13 13 weeks gestation of pregnancy
CPT/HCPCS: 36415; 80048; 82009; 83735; 84100; 85025; 99282-25

== ENCOUNTER 2017-01-28 18:46 | Emergency (ER) | payer OTHER ==
[2017-01-28 18:53] VITALS: TEMP 98.3; BMI 18.6
--- NOTE | 2017-01-28 20:21 | PDOC ---
History of Present Illness - General History Source: Patient <John Vincent - Last Filed: 01/28/17 20:21> - General History Source: Patient Exam Limitations: No Limitations - History of Present Illness Initial Comments: 01/28/17 20:44 The patient is a 21-year-old female who is 16 weeks , , with no significant past medical history, who presents to the ED with abdominal cramping today. Patient is also complaining of nausea and vomiting. 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 Patient denies any fever, chills, or diarrhea. Patient denies any vaginal bleeding or discharge. <Tatyana Prakash - Last Filed: 01/28/17 20:50> - General Chief Complaint: Pain Stated Complaint: CRAMPING/16 WKS Time Seen by Provider: 01/28/17 20:12 Past History - Past Medical History Anemia: No Asthma: No - Reproductive History (#): 2 Para: 0 Spontaneous : 1 - Psycho/Social/Smoking Cessation Hx Anxiety: No Suicidal Ideation: No Smoking History: Never smoked Have you smoked in the past 12 months: No Information on smoking cessation initiated: No Hx Alcohol Use: No Drug/Substance Use Hx: No Substance Use Type: None <MelisaJohn - Last Filed: 01/28/17 20:21> <Tatyana Prakash - Last Filed: 01/28/17 20:50> - Past Medical History Allergies/Adverse Reactions: Allergies Allergy/AdvReac Type Severity Reaction Status Date / Time No Known Allergies Allergy Verified 01/28/17 18:51 Home Medications: Ambulatory Orders Metoclopramide HCl [Reglan] 10 mg PO Q8H #20 tablet 01/06/17 Review of Systems - Review of Systems Able to Perform ROS?: Yes Comments:: 01/28/17 20:48 CONSTITUTIONAL: Absent: fever, no chills, no fatigue EYES: Absent: visual changes ENT: Absent: ear pain, no sore throat CARDIOVASCULAR: Absent: chest pain, no palpitations RESPIRATORY: Absent: cough, no SOB GI: Present: nausea, vomiting, abdominal cramping Absent: no constipation, no diarrhea GENITOURINARY: Absent: dysuria, no frequency, no hematuria MUSKULOSKELETAL: Absent: back pain, no arthralgia, no myalgia SKIN: Absent: rash NEURO: Absent: headache <DwainTatyana - Last Filed: 01/28/17 20:50> *Physical Exam - Vital Signs Last Vital Signs Temp Pulse Resp BP Pulse Ox 98.3 F 76 18 118/71 100 01/28/17 18:51 01/28/17 18:51 01/28/17 18:51 01/28/17 18:51 01/28/17 18:51 <John Vincent - Last Filed: 01/28/17 20:21> - Vital Signs Last Vital Signs Temp Pulse Resp BP Pulse Ox 98.3 F 76 18 118/71 100 01/28/17 18:51 01/28/17 18:51 01/28/17 18:51 01/28/17 18:51 01/28/17 18:51 - Physical Exam Comments: 01/28/17 20:49 GENERAL: Well-appearing, well-nourished. No apparent distress. HEENT: Normocephalic, atraumatic. PERRL, EOM intact. CARDIOVASCULAR: Normal S1, S2. Regular rate and rhythm. PULMONARY: Clear to auscultation bilaterally. ABDOMEN: Soft, non-distended, non-tender. EXTREMITIES: Normal ROM in all four extremities. No gross deformities. SKIN: Warm, dry. No rash NEUROLOGICAL: No focal neurological deficits. <Tatyana Prakash - Last Filed: 01/28/17 20:50> ED Treatment Course - ADDITIONAL ORDERS Additional order review: Laboratory Results 01/28/17 20:26 Urine Color Colorless Urine Appearance Clear Urine pH 8.0 Urine Protein Negative Urine Glucose (UA) Negative Urine Ketones Negative Urine Blood Negative Urine Nitrite Negative Urine Bilirubin Negative Urine Urobilinogen Negative Ur Leukocyte Esterase Trace H Urine HCG, Qual Positive <Tatyana Prakash - Last Filed: 01/28/17 20:50> *DC/Admit/Observation/Transfer - Attestations Scribe Attestion: 01/28/17 20:50 Documentation prepared by Tatyana Prakash, acting as nuclear medical tech for John Vincent MD. <Tatyana Prakash - Last Filed: 01/28/17 20:50>
[2017-01-28 20:32] LABS: URINE APPEARANCE CLEAR; URINE BILIRUBIN NEGATIVE (NEGATIVE); URINE BLOOD NEGATIVE (NEGATIVE); URINE COLOR COLORLESS; URINE GLUCOSE (UA) NEGATIVE (NEGATIVE); URINE KETONE NEGATIVE (NEGATIVE); URINE NITRITE NEGATIVE (NEGATIVE); URINE PROTEIN NEGATIVE (NEGATIVE); URINE UROBILINOGEN NEGATIVE E.U./dl (0.2-1.0)
[2017-01-28 20:34] LABS: URINE LEUK ESTERASE TRACE (NEGATIVE)
[2017-01-28 20:45] LABS: URINE BACTERIA RARE /hpf (NONE SEEN); URINE WBC 1 /hpf (3-5)
[2017-01-28] MEDS ORDERED: METOCLOPRAMIDE HCL 10 MG TABLET (FP) PO ONE ×2 (21:18→21:26)
[2017-01-28 21:31] VITALS: BP 113/70; PULSE 82
== END 2017-01-28 21:31 | disposition home or self-care (01) ==
LOC: JER 18:46
DX: O26.892 Other specified pregnancy related conditions, second trimester (principal); Z3A.16 16 weeks gestation of pregnancy
CPT/HCPCS: 76801-TC; 81003; 81015; 84703; 87086; 99282-25

== ENCOUNTER 2017-03-03 20:41 | Emergency (ER) | payer OTHER ==
[2017-03-03 22:54] LABS: URINE APPEARANCE CLEAR; URINE BILIRUBIN NEGATIVE (NEGATIVE); URINE BLOOD NEGATIVE (NEGATIVE); URINE COLOR COLORLESS; URINE GLUCOSE (UA) NEGATIVE (NEGATIVE); URINE KETONE NEGATIVE (NEGATIVE); URINE LEUK ESTERASE NEGATIVE (NEGATIVE); URINE NITRITE NEGATIVE (NEGATIVE); URINE PROTEIN NEGATIVE (NEGATIVE); URINE UROBILINOGEN NEGATIVE mg/dL (0.2-1.0)
[2017-03-04 00:19] VITALS: BP 111/76; PULSE 70; TEMP 99
== END 2017-03-04 00:05 | disposition left against medical advice (07) ==
LOC: JER 20:41
DX: O26.892 Other specified pregnancy related conditions, second trimester (principal); R10.2 Pelvic and perineal pain; R11.2 Nausea with vomiting, unspecified; Z3A.21 21 weeks gestation of pregnancy
CPT/HCPCS: 76801-TC; 76817-TC; 81003; 99281-25

== ENCOUNTER 2017-07-27 03:15 | Observation (INO) | payer OTHER ==
[2017-07-27 03:43] VITALS: BMI 17.7
[2017-07-27] MEDS ORDERED: SODIUM CHLORIDE 0.9% 1000 ML INFUS.BAG IV PRN (03:59)
[2017-07-27] MEDS ORDERED: ACETAMINOPHEN 500 MG TABLET (FP) PO ONE (04:03)
[2017-07-27] MEDS ORDERED: ACETAMINOPHEN 1000 MG/100 ML VIAL (NON FORMULARY) IVPB ONE (04:24)
[2017-07-27 04:30] LABS: BASO % 0.2 % (0-2.0); EOS % 0.3 % (0-4.5); MCH 26.4 pg (25.7-33.7); MCHC 32.4 g/dl (32.0-36.0); MEAN CELL VOLUME 81.6 fl (80-96); MEAN PLT VOLUME 8.5 fl (7.5-11.1); NEUT % 91.3 % (42.8-82.8); PLATELET COUNT 293 K/MM3 (134-434); RDW 13.9 % (11.6-15.6); WHITE BLOOD COUNT 15.4 K/mm3 (4.0-10.0)
[2017-07-27 04:31] LABS: URINE APPEARANCE SLCLOUDY; URINE BILIRUBIN NEGATIVE (NEGATIVE); URINE BLOOD 3+ (NEGATIVE); URINE COLOR YELLOW; URINE GLUCOSE (UA) NEGATIVE (NEGATIVE); URINE KETONE TRACE (NEGATIVE); URINE NITRITE NEGATIVE (NEGATIVE); URINE PROTEIN NEGATIVE (NEGATIVE)
[2017-07-27 04:34] LABS: VENOUS BLOOD GAS HCO3 25.7 meq/L (19-25); VENOUS PH 7.42 (7.32-7.42)
[2017-07-27] MEDS ORDERED: ACETAMINOPHEN INJECTION 100 ML IVPB ONE (04:34)
[2017-07-27] MEDS ORDERED: ACETAMINOPHEN 325 MG TABLET (FP) ONE (04:34)
[2017-07-27 04:36] LABS: URINE LEUK ESTERASE 2+ (NEGATIVE)
[2017-07-27 04:37] LABS: URINE HYALINE CAST 1 /lpf; URINE MUCUS RARE; URINE RBC 19 /hpf (0-3); URINE WBC 43 /hpf (3-5)
--- NOTE | 2017-07-27 04:39 | PDOC ---
History of Present Illness - General Chief Complaint: Cold Symptoms Stated Complaint: TEMPERATURE 102.3 Time Seen by Provider: 07/27/17 03:31 History Source: Patient Exam Limitations: No Limitations - History of Present Illness Initial Comments: This is a 22 YOF who is about 3 weeks from PROM (23 hours from ROM to vaginal delivery) with meconium aspiration, subsequently placed on abx and inpatient for two days. She presents with abrupt onset today at 2 am of fever to 103, headache, left lower chest pain, rapid palpitations, upper thoracic and lower lumbar midline back pain, suprapubic pain, burning on urination, and vaginal pain. The headache is the worst pain for her at this time and it is pounding, 7/10, worsening in general, and exacerbated by noise but not by light. She took Motrin 800 mg without relief. She notes lightheadedness and bilateral leg weakness, but denies any numbness, tingling, vision change, incontinence, difficulty balancing/walking, sore throat, runny nose, cough, SOB , or other symptoms. Past History - Past Medical History Allergies/Adverse Reactions: Allergies Allergy/AdvReac Type Severity Reaction Status Date / Time No Known Allergies Allergy Verified 03/04/17 01:33 Home Medications: Ambulatory Orders Vit Calc,Iron,Folic [ Vitamins] 1 each PO DAILY 03/04/17 Anemia: No Asthma: No COPD: No - Reproductive History (#): 2 Para: 0 Spontaneous : 1 - Suicide/Smoking/Psychosocial Hx Smoking History: Unknown if ever smoked Have you smoked in the past 12 months: No If you are a former smoker, when did you quit?: 2 years ago Information on smoking cessation initiated: No Hx Alcohol Use: No Drug/Substance Use Hx: No Substance Use Type: None Review of Systems - Review of Systems Able to Perform ROS?: Yes Constitutional: Yes: Chills, Fever, Malaise, Weakness. No: Unexplained wgt Loss HEENTM: No: Nose Congestion, Throat Pain Respiratory: No: Cough, Shortness of Breath Cardiac (ROS): Yes: Chest Pain (left lower), Lightheadedness, Palpitations ( rapid). No: Edema, Irregular Heart Rate, Syncope ABD/GI: Yes: Other (left upper abdominal pain). No: Constipated, Diarrhea, Nausea, Vomiting : Yes: Burning, Dysuria, Other (vaginal bleeding) Musculoskeletal: Yes: Back Pain. No: Neck Pain Integumentary: No: Bruising, Rash Neurological: Yes: Headache, Weakness (bilateral leg), Dizziness. No: Numbness , Tingling Endocrine: No: Unexplained Weight Gain, Unexplained Weight Loss *Physical Exam - Vital Signs Last Vital Signs Temp Pulse Resp BP Pulse Ox 102.9 F H 119 H 20 113/67 0 L 07/27/17 03:35 07/27/17 03:35 07/27/17 03:35 07/27/17 03:35 07/27/17 03:35 - Physical Exam General Appearance: Yes: Nourished, Appropriately Dressed, Mild Distress, Other (appropriate and pleasant young adult woman who is alert and oriented and answering questions) HEENT: positive: EOMI, RADHA, Normal ENT Inspection, Normal Voice, Hearing Grossly Normal. negative: Scleral Icterus (R), Scleral Icterus (L), Nasal Congestion Neck: positive: Trachea midline, Supple. negative: Tender, Rigid, Tender midline Respiratory/Chest: positive: Lungs Clear, Normal Breath Sounds. negative: Chest Tender, Respiratory Distress, Crackles, Rhonchi, Stridor, Wheezing Cardiovascular: positive: Regular Rhythm, Tachycardia. negative: Edema, Murmur Female Pelvic Exam: positive: normal external exam, CMT (mild), adnexal tenderness (bilateral, mild), other (os open, small amount of dark red blood with clots in the vaginal vault) Gastrointestinal/Abdominal: positive: Normal Bowel Sounds, Soft. negative: Tender, Organomegaly, Pulsatile Mass, Guarding Musculoskeletal: positive: Normal Inspection. negative: Decreased Range of Motion, Vertebral Tenderness Extremity: positive: Normal Capillary Refill, Normal Inspection, Normal Range of Motion. negative: Tender, Cyanosis Integumentary: positive: Normal Color, Dry, Warm. negative: Erythema, Rash, Bruising Neurologic: positive: supervisor inspection department II-XII NML intact, Fully Oriented, Alert, Normal Mood/ Affect, Normal Response, Motor Strength 5/5, Finger to Nose (normal). negative : Facial Droop, Numbness, Sensory Deficit, Confused, Disoriented ED Treatment Course - LABORATORY CBC & Chemistry Diagram: 07/27/17 04:13 07/27/17 04:13 - RADIOLOGY Radiology Studies Ordered: Category Date Time Status CHEST X-RAY PORTABLE* [RAD] Stat Radiology 07/27/17 03:59 Ordered Medical Decision Making - Medical Decision Making 22 YOF who is about 3 weeks from PROM (23 hours) with meconium aspiration, abx, now p/w fever, [place], CP, AP, palpitations. On exam VS notable for tachycardia and fever to 102.3, patient in mild distress , intermittently becomes lightheaded. Otherwise exam notable for suprapubic ttp, os open and blood in the vaginal vault, bilateral adnexal ttp and mild CMT. DDX IBNLT endometritis, retained products, PID, TOA, ovarian torsion , appendicitis, UTI/pyelo, PNA, etc. 07/27/17 06:27 Patient's blood work results with leukocytosis to >15k. Page sent to patient's OB doctor (Marcelina Lobo). Pt expressed wish to go home to her as the father needs to work and they have no family in the area. Spoke with the patient about the potential seriousness of her illness and about our recommendation for admission. Patient will have pelvic US LYLY when the on-call US tech arrives. 07/27/17 06:39 Spoke with the patient's OB doctor (Marcelina Galindo) who notes the patient was dx with chorioamnionitis after . She had negative blood cultures at that time and had broad spectrum abx for about [address] Galindo would appreciate a call back with the pelvic US results (cell phone is [phone]). *DC/Admit/Observation/Transfer Diagnosis at time of Disposition: Sepsis Qualifiers: Sepsis type: sepsis due to unspecified organism Qualified Code(s): A41.9 - Sepsis, unspecified organism - Referrals - Patient Instructions - Post Discharge Activity
[2017-07-27] MEDS ORDERED: CLINDAMYCIN 900 MG PREMIX IVPB 900 MG/50 ML BAG IVPB ONE (04:44)
[2017-07-27] MEDS ORDERED: WATER IVPB SCH (04:45)
[2017-07-27] MEDS ORDERED: DEXTROSE 5% IVPB SCH (04:45)
[2017-07-27] MEDS ORDERED: GENTAMICIN IVPB SCH (04:45)
[2017-07-27 04:46] LABS: INR 1.12 (0.82-1.09); PROTHROMBIN TIME (PATIENT) 12.7 SEC (9.98-11.88)
[2017-07-27 04:48] LABS: ACTIVATED PTT 32.6 SECONDS (26.9-34.4)
[2017-07-27] MEDS ORDERED: CLINDAMYCIN 600MG PREMIX IVPB 600 MG/50 ML BAG IVPB ONE (04:49)
[2017-07-27 04:59] LABS: ALBUMIN 3.8 g/dl (3.4-5.0); ANION GAP 12 (8-16); BILIRUBIN,TOTAL 0.5 mg/dL (0.2-1.0); CALCIUM 9.3 mg/dL (8.5-10.1); CO2 25 mmol/L (21-32); CREATININE 0.9 mg/dL (0.55-1.02); GLUCOSE,RANDOM 112 mg/dL (74-106); SGOT/AST 13 U/L (15-37); SGPT/ALT 15 U/L (12-78); TOT PROT 7.5 g/dl (6.4-8.2)
[2017-07-27] MEDS ORDERED: GENTAMICIN IVPB ONE (05:00)
[2017-07-27] MEDS ORDERED: DEXTROSE 5% IVPB ONE (05:00)
[2017-07-27] MEDS ORDERED: WATER IVPB ONE (05:00)
[2017-07-27 05:01] LABS: ALK PHOS 117 U/L (45-117); CPK 42 IU/L (26-192); TROPONIN I < 0.02 ng/ml (0.00-0.05)
--- NOTE | 2017-07-27 05:03 | PDOC ---
Attending Attestation - HPI HPI: 07/27/17 05:16 Patient is a 22 year old female, A1, with a significant past medical history of who presents to the ED with complaints of lower abdominal pain and vaginal bleeding s/p vaginal 3 weeks ago. Patient reports waking up this morning at 2 am with fever of 103. She report experiencing vaginal bleeding with clots, vaginal pain, and abdominal pain but is unsure if it is related to her fever. Patient currently states her headache is the dominant pain, stating it is a pounding 7/10 pain that has been worsening since beginning at 2am. Patient reports having complication during childbirth 3 weeks ago, a premature rupture membrane. Denies chest pain, SOB. Denies nausea, vomiting. Denies chills. Denies dizziness , coughing. Denies contact with sick individuals, out of state travel. Denies constipation, diarrhea, dysuria. Denies any other symptoms. Allergies: None Social history: Lives with child. No smoking. No alcohol. No illicit drugs. Surgical history: None PMD: None - Physicial Exam PE: 07/27/17 05:16 Vitals: Triage Vital signs reviewed General Appearance: no acute distress, well nourished well developed Head: Atraumatic Eyes: Pupils equal reactive round, extraocular movement intact Chest Wall: Nontender Cardiac: Regular rate and rhythm, no murmurs, no rubs, no gallops Lungs: Clear to auscultation bilateral, good air movement bilaterally Abdomen: +Lower superpubic tenderness to palpation. Soft, non distended, normal bowel sounds, Extremities: Full range of motion to all extremities, no cyanosis, clubbing, or edema Skin: Warm and dry, no rashes or lesions, no rash, no petechiae Neuro: AOX3; Cranial Nerves 2-12 grossly intact, Strength intact to all extremities, Sensation intact to all extremities, Psych: Normal mood, normal affect - Medical Decision Making 07/27/17 05:16 Documentation prepared by Alejandro Hernandez, acting as medical billing service for Marshall Cruz MD, /DO. <Alejandro Hernandez - Last Filed: 07/27/17 06:23> - Resident Resident Name: Ashely Palm - ED Attending Attestation I have performed the following: I have examined & evaluated the patient, The case was reviewed & discussed with the resident, I agree w/resident's findings & plan, Exceptions are as noted - Critical Care Time Total Critical Care Time: 35 Critical Care Statement: The care of this patient involved high complexity decision making to prevent further life threatening deterioration of the patient 's condition and/or to evaluate & treat vital organ system(s) failure or risk of failure. - Medical Decision Making Patient with fever tachycardia cervical motion tenderness 3 weeks Labs concerning for elevated white blood cell count. IV fluids and antibiotics ordered Ultrasound pending at this time differential diagnosis includes endometritis versus retained products of conception. Disposition per ultrasound reports and possible BUSINESS APPLICATIONS DEVELOPER consultation Oncoming ED attending to follow-up results and dispo <Marshall Cruz - Last Filed: 07/27/17 07:26>
--- NOTE | 2017-07-27 07:24 | PDOC ---
*Physical Exam - Vital Signs Last Vital Signs Temp Pulse Resp BP Pulse Ox 98.6 F 101 H 18 128/76 98 07/27/17 06:28 07/27/17 06:28 07/27/17 06:28 07/27/17 06:28 07/27/17 06:28 ED Treatment Course - LABORATORY CBC & Chemistry Diagram: 07/27/17 04:13 07/27/17 04:13 - ADDITIONAL ORDERS Additional order review: Laboratory Results 07/27/17 07/27/17 07/27/17 04:13 04:13 04:13 PT with INR INR PTT (Actin FS) VBG pH POC VBG pCO2 POC VBG pO2 Mixed VBG HCO3 Sodium 141 Potassium 3.7 Chloride 104 Carbon Dioxide 25 Anion Gap 12 BUN 11 D Creatinine 0.9 Creat Clearance w eGFR > 60 Random Glucose 112 H D Lactic Acid 1.4 Calcium 9.3 Total Bilirubin 0.5 D AST 13 L D ALT 15 D Alkaline Phosphatase 117 D Creatine Kinase 42 Troponin I < 0.02 Total Protein 7.5 Albumin 3.8 D Urine Color Urine Appearance Urine pH Ur Specific [place] Urine Protein Urine Glucose (UA) Urine Ketones Urine Blood Urine Nitrite Urine Bilirubin Urine Urobilinogen Urine WBC (Auto) Urine RBC (Auto) Ur Epithelial Cells Hyaline Casts Urine Mucus Blood Type O POSITIVE Antibody Screen Negative 07/27/17 07/27/17 07/27/17 04:13 04:13 04:13 PT with INR 12.70 H INR 1.12 PTT (Actin FS) 32.6 VBG pH 7.42 POC VBG pCO2 40.6 POC VBG pO2 32.6 Mixed VBG HCO3 25.7 H Sodium Potassium Chloride Carbon Dioxide Anion Gap BUN Creatinine Creat Clearance w eGFR Random Glucose Lactic Acid Calcium Total Bilirubin AST ALT Alkaline Phosphatase Creatine Kinase Troponin I Total Protein Albumin Urine Color Yellow Urine Appearance Slcloudy Urine pH 7.0 Ur Specific [place] 1.019 Urine Protein Negative Urine Glucose (UA) Negative Urine Ketones Trace H Urine Blood 3+ H Urine Nitrite Negative Urine Bilirubin Negative Urine Urobilinogen 2.0 H Urine WBC (Auto) 43 Urine RBC (Auto) 19 Ur Epithelial Cells Rare Hyaline Casts 1 Urine Mucus Rare Blood Type Antibody Screen 07/27/17 04:13 RBC 4.76 MCV 81.6 MCHC 32.4 RDW 13.9 MPV 8.5 D Neutrophils % 91.3 H D Lymphocytes % 6.0 L D Monocytes % 2.2 L Eosinophils % 0.3 Basophils % 0.2 - Medications Given in the ED: ED Medications Discontinued Medications Generic Name Dose Route Start Last Admin Trade Name Kim PRN Reason Stop Dose Admin Acetaminophen 1,000 mg 07/27/17 04:03 07/27/17 04:31 Tylenol - PO 07/27/17 04:04 1,000 mg ONCE ONE Administration Acetaminophen 1,000 mg 07/27/17 04:24 07/27/17 04:31 Ofirmev Injection - IVPB 07/27/17 04:25 1,000 mg ONCE ONE Administration Clindamycin Phosphate 900 mg in 50 mls @ 100 mls/hr 07/27/17 04:44 07/27/17 04:48 Cleocin 900 Mg Premix Ivpb - IVPB 07/27/17 05:13 100 mls/hr ONCE ONE Administration Gentamicin Sulfate 250 mg/ 256.25 mls @ 250 mls/hr 07/27/17 05:00 07/27/17 05 :17 Dextrose IVPB 07/27/17 06:01 250 mls/hr ONCE ONE Administration Medical Decision Making - Medical Decision Making 07/27/17 07:22 Patient is signed out to me by Dr. Palm, night team. The patient is a 22F s/p vaginal delivery who is presenting to the ED with complaints of suprapubic pain, LL CP, and headache. Her was complicated by PROM and chorioamnionitis where she was given 24 hours of broad spectrum abx after her delivery. Pending Pelvic U/S. If admitted, she would go to the hospitalist group with our OB. *DC/Admit/Observation/Transfer Diagnosis at time of Disposition: Sepsis Qualifiers: Sepsis type: sepsis due to unspecified organism Qualified Code(s): A41.9 - Sepsis, unspecified organism - Referrals - Patient Instructions - Post Discharge Activity
--- NOTE | 2017-07-27 07:57 | PDOC ---
*Physical Exam - Vital Signs Last Vital Signs Temp Pulse Resp BP Pulse Ox 98.6 F 101 H 18 128/76 98 07/27/17 06:28 07/27/17 06:28 07/27/17 06:28 07/27/17 06:28 07/27/17 06:28 - Physical Exam Comments: 07/27/17 08:54 awake, alert abd soft feeling better ED Treatment Course - LABORATORY CBC & Chemistry Diagram: 07/27/17 04:13 07/27/17 04:13 - ADDITIONAL ORDERS Additional order review: Laboratory Results 07/27/17 07/27/17 07/27/17 04:13 04:13 04:13 PT with INR INR PTT (Actin FS) VBG pH POC VBG pCO2 POC VBG pO2 Mixed VBG HCO3 Sodium 141 Potassium 3.7 Chloride 104 Carbon Dioxide 25 Anion Gap 12 BUN 11 D Creatinine 0.9 Creat Clearance w eGFR > 60 Random Glucose 112 H D Lactic Acid 1.4 Calcium 9.3 Total Bilirubin 0.5 D AST 13 L D ALT 15 D Alkaline Phosphatase 117 D Creatine Kinase 42 Troponin I < 0.02 Total Protein 7.5 Albumin 3.8 D Urine Color Urine Appearance Urine pH Ur Specific [place] Urine Protein Urine Glucose (UA) Urine Ketones Urine Blood Urine Nitrite Urine Bilirubin Urine Urobilinogen Urine WBC (Auto) Urine RBC (Auto) Ur Epithelial Cells Hyaline Casts Urine Mucus Blood Type O POSITIVE Antibody Screen Negative 07/27/17 07/27/17 07/27/17 04:13 04:13 04:13 PT with INR 12.70 H INR 1.12 PTT (Actin FS) 32.6 VBG pH 7.42 POC VBG pCO2 40.6 POC VBG pO2 32.6 Mixed VBG HCO3 25.7 H Sodium Potassium Chloride Carbon Dioxide Anion Gap BUN Creatinine Creat Clearance w eGFR Random Glucose Lactic Acid Calcium Total Bilirubin AST ALT Alkaline Phosphatase Creatine Kinase Troponin I Total Protein Albumin Urine Color Yellow Urine Appearance Slcloudy Urine pH 7.0 Ur Specific [place] 1.019 Urine Protein Negative Urine Glucose (UA) Negative Urine Ketones Trace H Urine Blood 3+ H Urine Nitrite Negative Urine Bilirubin Negative Urine Urobilinogen 2.0 H Urine WBC (Auto) 43 Urine RBC (Auto) 19 Ur Epithelial Cells Rare Hyaline Casts 1 Urine Mucus Rare Blood Type Antibody Screen 07/27/17 04:13 RBC 4.76 MCV 81.6 MCHC 32.4 RDW 13.9 MPV 8.5 D Neutrophils % 91.3 H D Lymphocytes % 6.0 L D Monocytes % 2.2 L Eosinophils % 0.3 Basophils % 0.2 - Medications Given in the ED: ED Medications Discontinued Medications Generic Name Dose Route Start Last Admin Trade Name Kim PRN Reason Stop Dose Admin Acetaminophen 1,000 mg 07/27/17 04:03 07/27/17 04:31 Tylenol - PO 07/27/17 04:04 1,000 mg ONCE ONE Administration Acetaminophen 1,000 mg 07/27/17 04:24 07/27/17 04:31 Ofirmev Injection - IVPB 07/27/17 04:25 1,000 mg ONCE ONE Administration Clindamycin Phosphate 900 mg in 50 mls @ 100 mls/hr 07/27/17 04:44 07/27/17 04:48 Cleocin 900 Mg Premix Ivpb - IVPB 07/27/17 05:13 100 mls/hr ONCE ONE Administration Gentamicin Sulfate 250 mg/ 256.25 mls @ 250 mls/hr 07/27/17 05:00 07/27/17 05 :17 Dextrose IVPB 07/27/17 06:01 250 mls/hr ONCE ONE Administration Medical Decision Making - Medical Decision Making 07/27/17 07:56 pt signed out pending ultrasound and [employer] evaluation -labs reviewed -elevated WBC -Dr. Douglas has evaluated the patient and agrees patient should stay for observation pending cultures 07/27/17 08:55 discussed need to stay for further eval. pt states she does not have help with childcare at home. will follow up in the clinic 07/27/17 08:58 Note: The patient insists on leaving the emergency dept and is signing out against medical advice. The patient understands the risks and complications that may result from the refusal of medical care and admission which includes and permanent disability. The patient has the mental capacity of understanding the risks of refusing care and is capable of making an informed decision. The patient was instructed to return to the emergency department should [] change [] mind regarding medical care or should [] condition worsen. The patient signed the Against Medical Advice form. 07/27/17 09:[address] douglas to discuss abx and follow up. *DC/Admit/Observation/Transfer Diagnosis at time of Disposition: Sepsis Qualifiers: Sepsis type: sepsis due to unspecified organism Qualified Code(s): A41.9 - Sepsis, unspecified organism - Discharge Dispostion Disposition: AGAINST MEDICAL ADVICE Condition at time of disposition: Unchanged/Unknown Admit: No - Prescriptions - Referrals - Patient Instructions - Post Discharge Activity
--- NOTE | 2017-07-27 08:06 | CON.OBG ---
Consult Consult Specialty:: OB / SENIOR OPERATIONS MANAGER Reason for Consultation:: fever - History of Present Illness Chief Complaint: Fever History of Present Illness: 22 yo Para 1 status post vaginal delivery of a live infant on 07/10/17, presents to ER c/o fever. Patient is breast feeding. She denies any abdominal pain nor chest pain. - History Source History Provided By: Patient Limitations to Obtaining History: No Limitations - Past Medical History ...LMP: 10/05/16 ...: No ...Para: 1 - Past Surgical History Past Surgical History: Yes: None - Alcohol/Substance Use Hx Alcohol Use: No - Smoking History Smoking history: Former smoker Have you smoked in the past 12 months: No If you are a former smoker, when did you quit?: 2 years ago Home Medications - Allergies Allergies/Adverse Reactions: Allergies Allergy/AdvReac Type Severity Reaction Status Date / Time No Known Allergies Allergy Verified 03/04/17 01:33 - Home Medications Home Medications: Ambulatory Orders Vit Calc,Iron,Folic [ Vitamins] 1 each PO DAILY 03/04/17 Family Disease History - Family Disease History Family History: Unremarkable Review of Systems - Review of Systems Constitutional: reports: Chills, Fever Eyes: reports: No Symptoms HENT: reports: No Symptoms Neck: reports: No Symptoms Cardiovascular: reports: No Symptoms Respiratory: reports: No Symptoms Gastrointestinal: reports: No Symptoms Genitourinary: reports: No Symptoms Breasts: reports: No Symptoms Reported Musculoskeletal: reports: No Symptoms Integumentary: reports: No Symptoms Endocrine: reports: No Symptoms Hematology/Lymphatic: reports: No Symptoms Psychiatric: reports: No Symptoms Pain Intensity: 0 Physical Exam-SENIOR OPERATIONS MANAGER Vital Signs: Vital Signs Temperature 98.6 F 07/27/17 06:28 Pulse Rate 101 H 07/27/17 06:28 Respiratory Rate 18 07/27/17 06:28 Blood Pressure 128/76 07/27/17 06:28 O2 Sat by Pulse Oximetry (%) 98 07/27/17 06:28 Constitutional: Yes: Well Nourished Eyes: Yes: Conjunctiva Clear HENT: Yes: Atraumatic Neck: Yes: Supple Cardiovascular: Yes: Regular Rate and Rhythm Respiratory: Yes: Regular Gastrointestinal: Yes: Normal Bowel Sounds External Genitalia: Yes: Normal Vaginal Exam: Yes: Normal Cervix: Yes: Normal Uterus: Yes: Firm ....Post : Yes: Uterus firm, Slight lochia serosa Breast(s): Yes: WNL Musculoskeletal: Yes: WNL Extremities: Yes: WNL Neurological: Yes: Alert, Oriented ...Motor Strength: WNL Psychiatric: Yes: Alert, Oriented Labs: CBC, BMP 07/27/17 04:13 07/27/17 04:13 Problem List - Problems (1) fever Code(s): O86.4 - PYREXIA OF UNKNOWN ORIGIN FOLLOWING DELIVERY Assessment/Plan fever IV antibiotic Tylenol for fever F/U blood culture CXR F/U transvaginal sonogram Consider admission for 24-48 hrs
[2017-07-27 09:20] LABS: URINE LEUK ESTERASE 1+ (NEGATIVE)
[2017-07-27 09:56] VITALS: BP 105/70; PULSE 81; TEMP 98.1
--- NOTE | 2017-07-27 21:03 | EKG ---
Test Reason : Blood Pressure : / mmHG Vent. Rate : 087 BPM Atrial Rate : 087 BPM P-R Int : 146 ms QRS Dur : 080 ms QT Int : 330 ms P-R-T Axes : 056 025 037 degrees QTc Int : 397 ms SINUS RHYTHM WITH MARKED SINUS ARRHYTHMIA OTHERWISE NORMAL ECG WHEN COMPARED WITH ECG OF 17-JUN-2017 14:58, NON-SPECIFIC CHANGE IN ST SEGMENT IN ANTERIOR LEADS NONSPECIFIC T WAVE ABNORMALITY HAS REPLACED INVERTED T WAVES IN INFERIOR LEADS Confirmed by MD JEREMIAH, CRISTÓBAL ([id number]) on 07/27/2017 9:02:40 PM Referred By: Confirmed By:CRISTÓBAL DANIELS MD
[2017-07-30 00:11] LABS: CHLAM.TRACHOMATIS NAA Negative (Negative); GONOCOCCUS NAA Negative (Negative); TRICH VAG NAA Negative (Negative)
== END 2017-07-27 09:56 | disposition left against medical advice (07) ==
LOC: JER 03:15 → UNDOADMOB 07:58 → JERBED 07:58
PROVIDERS: ADMIT Obstetrics & Gynecology; ATTEND Obstetrics & Gynecology
PROC: 3E03329 Introduction of Other Anti-infective into Peripheral Vein, Percutaneous Approach (ICD-10-PCS; principal; 2017-07-27)
PROC: 3E0337Z Introduction of Electrolytic and Water Balance Substance into Peripheral Vein, Percutaneous Approach (ICD-10-PCS; 2017-07-27)
PROC: 3E033GC Introduction of Other Therapeutic Substance into Peripheral Vein, Percutaneous Approach (ICD-10-PCS; 2017-07-27)
DX: A41.9 Sepsis, unspecified organism (principal); O86.4 Pyrexia of unknown origin following delivery; Z87.891 Personal history of nicotine dependence
CPT/HCPCS: 36415; 71010-TC; 76856-TC; 80053; 81003; 81015; 82550; 82803; 83605; 84484; 85025; 85610; 85730; 86850; 86900; 86901; 87040; 87086; 87491; 87591; 87661; 93005; 93010; 99285-25; G0378

== ENCOUNTER 2018-04-04 20:14 | Emergency (ER) | payer OTHER ==
[2018-04-04] MEDS ORDERED: SODIUM CHLORIDE 1,000 ML IV STA (20:44)
[2018-04-04] MEDS ORDERED: METOCLOPRAMIDE HCL INJECTION 10 MG/2 ML VIAL IVPB ONE (20:44)
--- NOTE | 2018-04-04 20:44 | PDOC ---
Rapid Medical Evaluation Time Seen by Provider: 04/04/18 20:40 Medical Evaluation: Allergies Allergy/AdvReac Type Severity Reaction Status Date / Time No Known Allergies Allergy Verified 03/04/17 01:33 04/04/18 20:40 22 year old female with history of migraines presenting with frontal headache, dizziness, and nausea since yesterday. Syncopized yesterday. States dizziness is not typical of her prior migraines. Took meclizine (had similar symptoms while and leftover rx) without relief. Actively dry-heaving in triage. Alert, oriented, appears very uncomfortable. No focal neurologic deficits. V/s unremarkable. Labs including CBC, CMP, serum , UA Reglan for [place]/vomiting To Main ED for further evaluation Discharge Disposition - Diagnosis Dizziness - Referrals - Patient Instructions - Post Discharge Activity
[2018-04-04 20:49] VITALS: BP 120/61; PULSE 63; TEMP 98.2; BMI 18.6
[2018-04-04] MEDS ORDERED: METOCLOPRAMIDE HCL INJECTION 10 MG/2 ML VIAL ONE (21:17)
[2018-04-04 21:21] LABS: BASO % 0.2 % (0-2.0); EOS % 0.1 % (0-4.5); HEMATOCRIT 42.7 % (32.4-45.2); HEMOGLOBIN 13.9 GM/dL (10.7-15.3); LYMPH % 18.9 % (8-40); MCH 26.9 pg (25.7-33.7); MCHC 32.6 g/dl (32.0-36.0); MEAN CELL VOLUME 82.7 fl (80-96); MEAN PLT VOLUME 8.9 fl (7.5-11.1); MONO % 3.6 % (3.8-10.2); NEUT % 77.2 % (42.8-82.8); PLATELET COUNT 206 K/MM3 (134-434); RBC 5.16 M/mm3 (3.60-5.2); RDW 13.7 % (11.6-15.6); WHITE BLOOD COUNT 10.4 K/mm3 (4.0-10.0)
[2018-04-04 21:46] LABS: ALBUMIN 4.5 g/dl (3.4-5.0); ALK PHOS 51 U/L (45-117); ANION GAP 8 MMOL/L (8-16); BILIRUBIN,TOTAL 0.9 mg/dL (0.2-1.0); BLOOD UREA NITROGEN 8 mg/dL (7-18); CALCIUM 9.6 mg/dL (8.5-10.1); CHLORIDE 107 mmol/L (98-107); CO2 24 mmol/L (21-32); CREATININE 0.8 mg/dL (0.55-1.02); GLUCOSE,RANDOM 96 mg/dL (74-106); POTASSIUM 3.9 mmol/L (3.5-5.1); SGOT/AST 16 U/L (15-37); SGPT/ALT 16 U/L (12-78); SODIUM 139 mmol/L (136-145); TOT PROT 7.8 g/dl (6.4-8.2)
--- NOTE | 2018-04-04 21:56 | PDOC ---
Attending Attestation - HPI HPI: 04/04/18 22:02 The patient is a 22 year old female with a significant PMH of migraines and vertigo presenting with frontal headache, dizziness, and nausea since yesterday. Patient states he has not been eating or drinking since the onset of his symptoms. Patient reports she took meclizine but was unable to keep it down. The patient denies chest pain and shortness of breath. Endorses chills but denies fever,vomit, diarrhea and constipation. Denies dysuria, frequency, urgency and hematuria. Allergies: NKA Past surgical history: None reported. Social history: No reported alcohol, drug, or cigarette use. <Tamela Conn - Last Filed: 04/04/18 22:02> - Resident Resident Name: Rene Lowery - ED Attending Attestation I have performed the following: I have examined & evaluated the patient, The case was reviewed & discussed with the resident, I agree w/resident's findings & plan, Exceptions are as noted - Physicial Exam PE: 04/05/18 19:19 *Physical Exam General Appearance: Yes: Appropriately Dressed. No: Apparent Distress, Intoxicated HEENT: positive: EOMI, RADHA, Normal ENT Inspection, Normal Voice, TMs Normal, Pharynx Normal. negative: Pale Conjunctivae, Photophobia, Scleral Icterus (R), Scleral Icterus (L) Neck: positive: Trachea midline, Normal Thyroid, Supple. negative: Tender, Rigid, Carotid bruit, Stridor, Lymphadenopathy (R), Lymphadenopathy (L), Thyromegaly Respiratory/Chest: positive: Lungs Clear, Normal Breath Sounds. negative: Chest Tender, Respiratory Distress, Accessory Muscle Use, Labored Respiration, RES, Crackles, Rales, Rhonchi, Stridor, Wheezing, Dullness Cardiovascular: positive: Regular Rhythm, Regular Rate, S1, S2. negative: Edema , JVD, Murmur, Bradycardia, Tachycardia Vascular Pulses: Dorsalis-Pedis (R): 2+, Doralis-Pedis (L): 2+ Gastrointestinal/Abdominal: positive: Normal Bowel Sounds, Flat, Soft. negative : Tender, Organomegaly, Pulsatile Mass, Increased Bowel Sounds, Decreased BS, Distended, Guarding, Rebound, Hernia, Hepatomegaly, Spleenomegaly Lymphatic: negative: Adenopathy, Tenderness Musculoskeletal: positive: Normal Inspection. negative: CVA Tenderness, Decreased Range of Motion Extremity: positive: Normal Capillary Refill, Normal Inspection, Normal Range of Motion, Pelvis Stable. negative: Tender, Pedal Edema, Swelling, Erythema Integumentary: positive: Normal Color, Dry, Warm. negative: Cyanotic, Erythema , Jaundice, Rash Neurologic: positive: chef manager II-XII NML intact, Fully Oriented, Alert, Normal Mood/ Affect, Motor Strength 5/5. negative: EOM Palsy, Facial Droop, Sensory Deficit - Medical Decision Making 04/05/18 19:19 Patient was treated and released <John Vincent - Last Filed: 04/05/18 19:20>
[2018-04-04] MEDS ORDERED: MECLIZINE HCL 25 MG TABLET (FP) PO ONE (23:06)
[2018-04-04] MEDS ORDERED: MECLIZINE HCL 25 MG TABLET (FP) ONE (23:15)
--- NOTE | 2018-04-05 00:16 | PDOC ---
History of Present Illness - General Chief Complaint: Lightheaded Stated Complaint: NAUSEA/VOMITING Time Seen by Provider: 04/04/18 20:40 History Source: Patient Exam Limitations: No Limitations - History of Present Illness Initial Comments: 04/05/18 00:11 The patient is a 22F with a PMH of vertigo who presents to the ER with complaints of worsening vertiginous symptoms. The patient states that she began to feel her vertigo yesterday but it was controlled with meclizine. She states that today, she has felt the sensation of vertigo since she woke up associated with nausea and vomiting. She states that she has not been able to keep anything down. She admits to chills but denies CP, SOB, fevers, dysuria, hematuria, cough. Past History - Past Medical History Allergies/Adverse Reactions: Allergies Allergy/AdvReac Type Severity Reaction Status Date / Time No Known Allergies Allergy Verified 04/04/18 21:25 Home Medications: Ambulatory Orders NK [No Known Home Medication] 04/04/18 Anemia: No Asthma: No COPD: No - Reproductive History (#): 2 Para: 0 Cervical CA: No Dysfunctional Uterine Bleeding: No Ectopic : No Endometrial CA: No Polycystic Ovaries: No Tubal Ligation: No Spontaneous : 1 - Suicide/Smoking/Psychosocial Hx Smoking History: Never smoked Have you smoked in the past 12 months: No If you are a former smoker, when did you quit?: 2 years ago Information on smoking cessation initiated: No Hx Alcohol Use: No Drug/Substance Use Hx: No Substance Use Type: None Review of Systems - Review of Systems Able to Perform ROS?: Yes Comments:: 04/05/18 00:13 GENERAL/CONSTITUTIONAL: No fever or chills. No weakness. HEAD, EYES, EARS, NOSE AND THROAT: No change in vision. No ear pain or discharge. No sore throat. CARDIOVASCULAR: No chest pain, palpitations, or lightheadedness. RESPIRATORY: No cough, wheezing, shortness of breath, or hemoptysis. GASTROINTESTINAL: Positive for nausea and vomiting. No diarrhea, constipation, or abdominal pain. GENITOURINARY: No dysuria, frequency, hematuria, or change in urination. MUSCULOSKELETAL: No joint or muscle swelling or pain. No neck or back pain. SKIN: No rash or lesions. NEUROLOGIC: Positive for vertiginous symptoms. No headache, numbness, tingling, weakness, loss of consciousness, or change in strength/sensation. ENDOCRINE: No increased thirst. No abnormal weight change. HEMATOLOGIC/LYMPHATIC: No anemia, easy bleeding, or history of blood clots. ALLERGIC/IMMUNOLOGIC: No hives or skin allergy. Is the patient limited Finnish proficient: No *Physical Exam - Vital Signs Last Vital Signs Temp Pulse Resp BP Pulse Ox 98.2 F 63 20 120/61 100 04/04/18 20:44 04/04/18 20:44 04/04/18 20:44 04/04/18 20:44 04/04/18 20:44 - Physical Exam Comments: 04/05/18 00:14 GENERAL: Well developed, well nourished. Awake and alert. No acute distress. HEENT: Normocephalic, atraumatic. Hearing grossly normal. Moist mucous membranes. PERRLA, EOMI. No conjunctival pallor. Sclera are non-icteric. NECK: Supple. Full ROM. No JVD. CARDIOVASCULAR: Regular rate and rhythm. No murmurs, rubs, or gallops. PULMONARY: No evidence of respiratory distress. Lungs clear to auscultation bilaterally. No wheezing, rales or rhonchi. ABDOMINAL: Soft. Non-tender. Non-distended. No rebound or guarding. GENITOURINARY: No CVA tenderness bilaterally. MUSCULOSKELETAL: Normal range of motion at all joints. No bony deformities or tenderness. EXTREMITIES: No cyanosis. No clubbing. No edema. No calf tenderness or swelling. SKIN: Warm and dry. Normal capillary refill. No rashes. No jaundice. NEUROLOGICAL: Alert, awake, appropriate. Cranial nerves 2-12 intact. No deficits to light touch and temperature in face, upper extremities and lower extremities. 5/5 strength in deltoids, biceps, triceps, quadriceps, hamstrings, and gastrocnemius. Persistent horizontal nystagmus on the L. Normal speech. Gait is normal without ataxia. PSYCHIATRIC: Cooperative. Good eye contact. Appropriate mood and affect. ED Treatment Course - LABORATORY CBC & Chemistry Diagram: 04/04/18 21:10 04/04/18 21:10 - ADDITIONAL ORDERS Additional order review: Laboratory Results 04/04/18 04/04/18 21:10 21:10 Sodium 139 Potassium 3.9 Chloride 107 Carbon Dioxide 24 Anion Gap 8 BUN 8 Creatinine 0.8 Creat Clearance w eGFR > 60 Random Glucose 96 Calcium 9.6 Total Bilirubin 0.9 AST 16 ALT 16 Alkaline Phosphatase 51 Total Protein 7.8 Albumin 4.5 Serum , Qual Negative 04/04/18 21:10 RBC 5.16 MCV 82.7 MCHC 32.6 RDW 13.7 MPV 8.9 Neutrophils % 77.2 Lymphocytes % 18.9 D Monocytes % 3.6 L Eosinophils % 0.1 Basophils % 0.2 - Medications Given in the ED: ED Medications Discontinued Medications Generic Name Dose Route Start Last Admin Trade Name iKm PRN Reason Stop Dose Admin Diphenhydramine HCl 12.5 mg 04/04/18 20:44 04/04/18 21:35 Benadryl Injection - IVPUSH 04/04/18 20:45 12.5 mg ONCE ONE Administration Sodium Chloride 1,000 mls @ 1,000 mls/hr 04/04/18 20:44 04/04/18 21:28 Normal Saline - IV 04/04/18 21:43 1,000 mls/hr ASDIR STA Administration Meclizine HCl 25 mg 04/04/18 23:06 04/04/18 23:35 Antivert - PO 04/04/18 23:07 25 mg ONCE ONE Administration Metoclopramide HCl 10 mg 04/04/18 20:44 04/04/18 21:29 Reglan Injection - IVPB 04/04/18 20:45 10 mg ONCE ONE Administration Medical Decision Making - Medical Decision Making 04/05/18 00:15 The patient is a 22F with a PMH of vertigo who presents to the ER with vertiginous symptoms. Given benadryl and reglan with IVF. Pt states she felt much better. Labs WNL. Negative test. Given meclizine. Will d/c home with neuro f/u as she was asking/concerned about other causes of vertigo although she has already f/u with ENT and PCP. 04/05/18 01:14 UA is not a clean catch therefore no UTI. Pt denies dysuria. Will d/c home with f/u. *DC/Admit/Observation/Transfer Diagnosis at time of Disposition: Dizziness, Vertigo - Discharge Dispostion Disposition: HOME Condition at time of disposition: Stable Decision to Admit order: No - Referrals Referrals: Ankit Tracey DO [Staff Physician] - - Patient Instructions Printed Discharge Instructions: DI for Vertigo Additional Instructions: Please follow up with your primary care physician in 2-3 days. Also follow up with the neurologist, Dr. Tracey, for your vertigo. Please return to the ER if you have any signs or symptoms of chest pain, shortness of breath, uncontrollable fever, chills, nausea, vomiting, numbness, tingling, or weakness in any part of your body, changes in vision, or slurred speech. Please return to the ER if symptoms persist, worsen, or new symptoms arise. - Post Discharge Activity
[2018-04-05 00:55] LABS: URINE APPEARANCE SLCLOUDY; URINE BILIRUBIN NEGATIVE (<2.0 mg/dL); URINE COLOR YELLOW; URINE GLUCOSE (UA) NEGATIVE (NEGATIVE); URINE KETONE 2+ (NEGATIVE); URINE NITRITE NEGATIVE (NEGATIVE); URINE PROTEIN NEGATIVE (NEGATIVE); URINE UROBILINOGEN NEGATIVE mg/dL (0.2-1.0)
[2018-04-05 00:57] LABS: URINE LEUK ESTERASE 2+ (NEGATIVE)
[2018-04-05 01:02] LABS: EPI CELLS MANY /HPF (FEW); URINE MUCUS RARE
--- NOTE | 2018-04-05 09:45 | EKG ---
Test Reason : Blood Pressure : / mmHG Vent. Rate : 059 BPM Atrial Rate : 059 BPM P-R Int : 156 ms QRS Dur : 084 ms QT Int : 452 ms P-R-T Axes : 053 026 037 degrees QTc Int : 447 ms SINUS BRADYCARDIA WITH MARKED SINUS ARRHYTHMIA OTHERWISE NORMAL ECG WHEN COMPARED WITH ECG OF 27-JUL-2017 04:37, NO SIGNIFICANT CHANGE WAS FOUND Confirmed by Justin Aaron MD ([id number]) on 04/05/2018 9:44:59 AM Referred By: Confirmed By:Justin Aaron MD
== END 2018-04-05 01:33 | disposition home or self-care (01) ==
LOC: JER 20:14
PROC: 3E0337Z Introduction of Electrolytic and Water Balance Substance into Peripheral Vein, Percutaneous Approach (ICD-10-PCS; principal; 2018-04-04)
PROC: 3E033GC Introduction of Other Therapeutic Substance into Peripheral Vein, Percutaneous Approach (ICD-10-PCS; 2018-04-04)
PROC: 3E033GC Introduction of Other Therapeutic Substance into Peripheral Vein, Percutaneous Approach (ICD-10-PCS; 2018-04-04)
DX: H81.8X9 Other disorders of vestibular function, unspecified ear (principal); G43.909 Migraine, unspecified, not intractable, without status migrainosus
CPT/HCPCS: 36415; 80053; 81003; 81015; 84703; 85025; 93005; 93010; 99284-25; J7030

== ENCOUNTER 2020-05-17 19:26 | Emergency (ER) | payer OTHER ==
[2020-05-17 19:44] VITALS: BP 116/80; PULSE 73; TEMP 97; BMI 17.1
--- OUTSIDE RECORDS SUMMARY | 2020-05-17 20:05 | XMS ---
:[address] [facility] Care Team Providers Name Role Phone TRUDY HODGE MD W Unavailable TRUDY HODGE MD W Unavailable MD Agata Unavailable Unavailable TRUDY HODGE MD W Unavailable Unavailable JESSE HODGE Unavailable Unavailable TRUDY HODGE MD W Unavailable Unavailable JESSE HODGE Unavailable Unavailable TRUDY HODGE MD W Unavailable Unavailable JESSE HODGE Unavailable Unavailable JESSE HODGE Unavailable Unavailable JESSE HODGE Unavailable JESSE HODGE Unavailable TRUDY HODGE MD W Unavailable Unavailable TRUDY HODGE MD W Unavailable Unavailable JESSE HODGE Unavailable Unavailable Richie SARAVIA MD Unavailable Unavailable Richie SARAVIA MD Unavailable Unavailable Richie SARAVIA MD Unavailable Unavailable Richie SARAVIA MD Unavailable Unavailable Richie SARAVIA MD Unavailable Unavailable Richie SARAVIA MD Unavailable Unavailable Richie SARAVIA MD Unavailable Unavailable Richie SARAVIA MD Unavailable Unavailable Richie SARAVIA MD Unavailable Unavailable Richie SARAVIA MD Unavailable Unavailable Richie SARAVIA MD Unavailable Unavailable Richie SARAVIA MD Unavailable Unavailable JESSE HODGE MD R Unavailable Unavailable JESSE HODGE Unavailable Unavailable NONE Unavailable Unavailable Alexander Sadler Unavailable Unavailable TRUDY HODGE MD W Unavailable Unavailable Re-disclosure Warning The records that you are about to access may contain information from federally- assisted alcohol or drug abuse programs. If such information is present, then the following federally mandated warning applies: This information has been disclosed to you from records protected by federal confidentiality rules (42 CFR part 2). The federal rules prohibit you from making any further disclosure of this information unless further disclosure is expressly permitted by the written consent of the person to whom it pertains or as otherwise permitted by 42 CFR part 2. A general authorization for the release of medical or other information is NOT sufficient for this purpose. The Federal rules restrict any use of the information to criminally investigate or prosecute any alcohol or drug abuse patient.The records that you are about to access may contain highly sensitive health information, the redisclosure of which is protected by Article 27-F of the [facility] Public Health law. If you continue you may haveaccess to information: Regarding HIV / AIDS; Provided by facilities licensed or operated by the [facility] Office of Mental Health; or Provided by the [facility] Office for People With Developmental Disabilities. If such information is present, then the following [facility] mandated warning applies: This information has been disclosed to you from confidential records which are protected by state law. State law prohibits you from making any further disclosure of this information without the specific written consent of the person to whom it pertains, or as otherwise permitted by law. Any unauthorized further disclosure in violation of state law may result in a fine or halfway sentence or both. A general authorization for the release of medical or other information is NOT sufficient authorization for further disclosure. Allergies and Adverse Reactions Type Description Substance Reaction Status Data Source(s ) D No Known Medication No Known Medication NM ian - Allergies Allergies [facility] Encounters Encounter Providers Location Date Indications Data Source(s ) Emergency Attender: NITIN XR-ED 03/13/2020 [place] Guy SARAVIA MDReferrer: 12:31:47 PM [facility] NONE NONE EDT - Hospital [facility] 03/13/2020 06:18:00 PM EDT DIZZY Patient discharged. Emergency Attender: NITIN [facility] 03/13/2020 [place] Mel SARAVIA MD [facility] 12:31:47 PM EDT [facility] 03/13/2020 [facility] 06:18:00 PM EDT Inpatient Attender: Samson 2019 [place] ins RaitAttender: 05:30:00 PM EDT Hospit al Gail Parmar - 04/19/2019 MDAdmitter: 10:26:00 AM EDT Gail Parmar MD Patient discharged. Emergency Attender: MD RODRIGO FERRARI XR-ED 09/08/2018 8 WKS [place] Estrella YATES MDAttender: 10:52:00 AM EST BLEEDING Hu dson Evin YATES - 09/08/2018 [facility] MDAttender: 02:12:00 PM EST RODRIGO YATES MDAttender: MD RODRIGO YATES MDAttender: MD RODRIGO YATES MDAttender: MD RODRIGO YATES MDAttender: MD RODRIGO YATES MD 8 WKS BLEEDING Outpatient Attender: JOYA FERRARI XR-[facility] MRI 08/20/2018 r27.0 [facility] [place] 12:52:41 PM EST - [place] MDAttender: JOYA 08/20/2018 [facility] [place] 11:59:59 PM EST MDAttender: JOYA BARRERAPEMADHAV MDAttender: JOYA MOLINA MDAttender: JOYA MOLINA MDAttender: JOYA MOLINA MDAttender: JOYA MOLINA MDAttender: MD JOYA MOLINA MDReferrer: JOYA MOLINA MD r27.0 Medications Medication Brand Start Product Dose Route Administrative Pharmacy St atus Indications Reaction Description Data Name Date Form Instructions Instructions Source(s) Meclizine mecliz .0 Oral [place] Hydrochlori ine 25 2020 mg Pres[facility] cynthia de 25 MG mg 05:11: an - Oral Tablet oral 00 PM [place] meclizine tablet EDT [place] 25 mg oral Hospital tablet Center Ibuprofen Ibupro 07/12/ TABLET 600 ORAL complet W gustavo 600 MG Oral fen 2017 mg ed [place] Tablet 09:12: Hospital 00 AM EST Insurance Providers Payer name Policy type Policy ID Covered Covered constitution party's Policy P lia / Coverage constitution party ID relationship to [place] Inf ormation type hernández [employer] MEDICAID [id number] PLAN [facility] [id number] CARE PRIVATE COM [id number] HEALTHCARE SYS./PHCS [facility] [id number] 1 [employer] [id number] PT [id number] HEALTHCARE PPO [facility] [id number] 1 PRIVATE COM [id number] HEALTHCARE SYS./PHCS [facility] [id number] 1 PRIVATE COM [id number] HEALTHCARE SYS./PHCS [facility] [id number] 1 PRIVATE COM [id number] HEALTHCARE SYS./PHCS PRIVATE COM [id number] HEALTHCARE SYS./PHCS PRIVATE COM [id number] HEALTHCARE SYS./PHCS PRIVATE COM [id number] HEALTHCARE SYS./PHCS Problems, Conditions, and Diagnoses Code Display Name Description Problem Type Effective Dates Data Source(s) O70.1 Second degree O70.1 Diagnosis 2019 [facility] perineal laceration 05:31:00 PM EDT Hospital during delivery Z3A.40 40 weeks gestation Z3A.40 Diagnosis 2019 [place] of 05:31:00 PM EDT Hospita l Z37.0 Single live Z37.0 Diagnosis 2019 Marya [facility] 05:31:00 PM EDT Hospital O48.0 Post-term O48.0 Diagnosis 2019 [place] 05:31:00 PM EDT Hospital Surgeries/Procedures Procedure Description Date Indications Data Source(s) COLLECTION VENOUS BLOOD 03/13/2020 [place] [facility] 01:57:[address] [facility] Center COLLECTION VENOUS BLOOD 03/13/2020 [place] [facility] 01:57:[address] [facility] EDT Center COLLECTION VENOUS BLOOD 03/13/2020 [place] [facility] 12:50:[address] [facility] EDT Center COLLECTION VENOUS BLOOD 03/13/2020 [place] [facility] 12:50:[address] [facility] EDT Center COLLECTION VENOUS BLOOD 03/13/2020 [place] [facility] 12:50:[address] [facility] EDT Center Rr 60-120 Min. L+D 2019 [facility] 12:00:00 AM EDT Labor Room 2019 [facility] spital 12:00:00 AM EDT Suction Tubing Inf 2019 [facility] 12:00:00 AM EDT External monitor 2019 [facility] surveillance 12:00:00 AM (regime/therapy) EDT Suction Liners 2019 [facility] 12:00:00 AM EDT Straight urinary 2019 [facility] catheterization 12:00:00 AM EDT Anesthesia-Epidural 2019 [facility] 12:00:00 AM EDT Oxygen therapy 2019 [facility] (procedure) 12:00:00 AM EDT Results ID Date Data Source [id number] 03/13/2020 01:57:00 PM EDT [facility] [id number] [facility] Name Value Range Interpretation Code Description Data Ilene rce(s) Supporting Document(s ) EGFR AA [facility] EGFR Non [facility] ID Date Data Source [id number] 03/13/2020 01:57:00 PM EDT [facility] [id number] Hospital Center Name Value Range Interpretation Description Data Source(s ) Supporting Code Document(s ) Glucose Lvl 93 mg/dL Normal (applies [place] [facility] to [facility] results) Hospital Center BUN 12 mg/dL Normal (applies [place] [facility] n to [employer] [facility] results) Hospital Center Sodium Lvl 135 [facility] Creatinine 0.72 Normal (applies [place] [facility] an mg/dL to [employer] [facility] results) Hospital Center CO2 26 Normal (applies [place] [facility] n mmol/L to [employer] [facility] results) Hospital Center Chloride 102 Normal (applies [place] [facility] n mmol/L to [employer] [facility] results) [facility] Potassium Lvl 4.4 Normal (applies [place] Pres[facility] erian mmol/L to non-[facility] results) Hospital Center Total Protein 6.4 g/dL Normal ([facility] results) Hospital Center AGPK 11.4 Normal (applies [place] [facility] to non-numeric - [facility] results) [facility] Center Calcium Lvl 9.1 Normal (applies [place] [facility] [place] mg/dL to non-numeric - [facility] results) [facility] AST 23 Normal (applies [place] [facility] unit/L to non-numeric - [facility] results) Hospital Center Albumin Lvl 4.2 g/dL Normal (applies [place] [facility] [place] to non-numeric - [place] [facility] results) [facility] ALT 16 Normal (applies [place] [facility] unit/L to non-numeric - [facility] results) Hospital [facility] Alk Phos 39 Normal (applies [place] [facility] [place] unit/L to non-numeric - [place] [facility] results) Hospital Center Bili Total 0.90 Normal (applies [place] [facility] an mg/dL to non-numeric - [facility] results) Hospital Center ID Date Data Source [id number] 03/13/2020 12:50:00 PM EDT [place] [facility] - [place] [id number] Hospital Center Name Value Range Interpretation Description Data Source(s ) Supporting Code Document(s ) Neutro 68.8 % Normal (applies [place] [facility] [place] Percent to non-numeric - [place] results) Hospital [facility] Lymph 24.5 % Normal (applies [place] [facility] [place] Percent to non-numeric - [place] results) Hospital [facility] Ellis Percent 5.7 % Normal (applies [place] [facility]anne to non-numeric - [place] results) Hospital Center Eos Percent 0.6 % Normal (applies [place] [facility] [place] to non-numeric - [place] results) Hospital Center Baso Percent 0.4 % Normal (applies [place] [facility] suzanne to non-numeric - [place] results) Hospital [facility] Lymph 2.0 Normal (applies [place] [facility] [place] Absolute x10(3)/mc to non-numeric - [place] L results) Hospital [facility] Neutro 5.6 Normal (applies [place] [facility] [place] Absolute x10(3)/mc to non-numeric - [place] L results) [facility] Ellis 0.5 Normal (applies [place] [facility] [place] Absolute x10(3)/mc to non-numeric - [place] L results) Hospital Center Baso 0.0 Normal (applies [place] [facility] n Absolute x10(3)/mc to non-numeric - [facility] L results) Hospital Center Eos Absolute 0.0 Normal (applies [place] Pres[facility] suzanne x10(3)/mc to non-numeric - [facility] L results) Hospital Center ID Date Data Source [id number] 03/13/2020 12:50:00 PM EDT [facility] [id number] [facility] Name Value Range Interpretation Description Data Source(s ) Supporting Code Document(s ) U beta Neg Normal (applies to [facility] suzanne hCG Ql (03/13/20 non-numeric [facility] 12:50 PM) results) Hospital Center ID Date Data Source [id number] 03/13/2020 12:50:00 PM EDT [facility] [id number] [facility] Name Value Range Interpretation Description Data Source(s ) Supporting Code Document(s ) UA Glucose Negative Normal (applies [place] (03/13/20 to non-numeric [facility] - 12:50 PM) results) [facility] UA Protein Negative Normal (applies [place] (03/13/20 to non-numeric [facility] - 12:50 PM) results) [facility] UA Bili Negative Normal (applies [place] (03/13/20 to non-numeric [facility] - 12:50 PM) results) [facility] UA Normal Normal (applies NM Urobilinogen (03/13/20 to non-numeric [facility] - 12:50 PM) results) [facility] UA pH 6.5 Normal (applies NM to non-numeric [facility] - results) [facility] UA Ketones Negative Normal (applies [place] (03/13/20 to non-numeric [facility] - 12:50 PM) results) [facility] UA Blood Negative Normal (applies [place] (03/13/20 to non-numeric [facility] - 12:50 PM) results) [facility] UA Nitrite Negative Normal (applies [place] (03/13/20 to non-numeric [facility] - 12:50 PM) results) [facility] UA Leuk Est Negative Normal (applies [place] (03/13/20 to non-numeric [facility] - 12:50 PM) results) [facility] UA Color Yellow Normal (applies [place] (03/13/20 to non-numeric [facility] - 12:50 PM) results) [facility] UA Spec Grav 1.017 Normal (applies [place] to non-numeric [facility] - results) [facility] UA Appear Clear Normal (applies [place] (03/13/20 to non-numeric [facility] - 12:50 PM) results) [facility] ID Date Data Source [id number] 03/13/2020 12:50:00 PM EDT [facility] [id number] Hospital Center Name Value Range Interpretation Description Data Source(s ) Supporting Code Document(s ) WBC 8.2 Normal ([facility]lies [facility] x[facility]mc non-numeric - [facility] L results) Hospital Center RBC 4.72 Normal (applies [facility] [place] [facility] x10(6)/mc non-numeric - [facility] L results) Hospital Center Hct 39.2 % Normal (applies to [facility] results) Hospital Center Hgb 13.1 g/dL Normal (applies to [facility] results) Hospital Center MCV 83.0 fL Normal (applies to [facility] results) Hospital Center MCHC 33.4 g/dL Normal (applies to [facility] non[facility] results) [facility] Platelet 188 Normal [facility]mc non-numeric - [facility] L results) Hospital Center RDW 14.1 % Normal (applies to [facility] non-numeric [facility] results) Hospital Center MCH 27.7 pg Normal (applies to [facility] results) Hospital Center MPV 9.1 fL Normal (applies to [facility] results) Hospital Center ID Date Data Source [id number] 04/19/2019 08:00:00 AM EDT [facility] Name Value Range Interpretation Code Description Data Supporting Source(s) Document(s ) NUCLEATED RBCS 0.0 % [place] (AUTO Hospital DIFF%)DIS ID Date Data Source [id number] 04/19/2019 08:00:00 AM EDT [facility] Name Value Range Interpretation Description Data Sup porting Code Source(s) Document(s ) Differential AUTOMATED [place] cell count Hospital method - Blood ID Date Data Source [id number] 04/19/2019 08:00:00 AM EDT [facility] Name Value Range Interpretation Description Data Sup porting Code Source(s) Document(s ) Immature 0.07 [place] granulocytes 10*3/uL Hospital [#/volume] in Blood by Automated count ID Date Data Source [id number] 04/19/2019 08:00:00 AM EDT [facility] Name Value Range Interpretation Description Data Sup porting Code Source(s) Document(s ) Basophils 0.04 [place] [#/volume] in 10*3/uL Hospital Blood by Automated count ID Date Data Source [id number] 04/19/2019 08:00:00 AM EDT [facility] Name Value Range Interpretation Description Data Sup porting Code Source(s) Document(s ) Eosinophils 0.16 [place] [#/volume] in 10*3/uL Hospital Blood by Automated count ID Date Data Source [id number] 04/19/2019 08:00:00 AM EDT [facility] Name Value Range Interpretation Description Data Sup porting Code Source(s) Document(s ) Monocytes 0.67 [place] [#/volume] in 10*3/uL Hospital Blood by Automated count ID Date Data Source [id number] 04/19/2019 08:00:00 AM EDT [facility] Name Value Range Interpretation Description Data Sup porting Code Source(s) Document(s ) Lymphocytes 2.46 [place] [#/volume] in 10*3/uL Hospital Blood by Automated count ID Date Data Source [id number] 04/19/2019 08:00:00 AM EDT [facility] Value Range Interpretation Description Data Sup porting Code Source(s) Document(s ) Neutrophils 8.70 [place] [#/volume] in 10*3/uL Hospital Blood by Automated count ID Date Data Source [id number] 04/19/2019 08:00:00 AM EDT [facility] Value Range Interpretation Description Data Sup porting Code Source(s) Document(s ) Nucleated 0.0 % [place] erythrocytes/10 Hospital 0 leukocytes [Ratio] in Blood by Automated count ID Date Data Source [id number] 04/19/2019 08:00:00 AM EDT [facility] Value Range Interpretation Description Data Sup porting Code Source(s) Document(s ) Immature 0.6 % [place] granulocytes/10 Hospital 0 leukocytes in Blood by Automated count ID Date Data Source [id number] 04/19/2019 08:00:00 AM EDT [facility] Value Range Interpretation Description Data Sup porting Code Source(s) Document(s ) Basophils/100 0.3 % [place] leukocytes in Hospital Blood by Automated count ID Date Data Source [id number] 04/19/2019 08:00:00 AM EDT [facility] Value Range Interpretation Description Data Sup porting Code Source(s) Document(s ) Eosinophils/100 1.3 % [place] leukocytes in Hospital Blood by Automated count ID Date Data Source [id number] 04/19/2019 08:00:00 AM EDT [place] [facility] Name Value Range Interpretation Description Data Sup porting Code Source(s) Document(s ) Monocytes/100 5.5 % [place] leukocytes in Hospital Blood by Automated count ID Date Data Source [id number] 04/19/2019 08:00:00 AM EDT [facility] Name Value Range Interpretation Description Data Sup porting Code Source(s) Document(s ) Lymphocytes/10 20.3 % [place] 0 leukocytes Hospital in Blood by Automated count ID Date Data Source [id number] 04/19/2019 08:00:00 AM EDT [facility] Value Range Interpretation Description Data Sup porting Code Source(s) Document(s ) Neutrophils/10 72.0 % [place] 0 leukocytes Hospital in Blood by Automated count ID Date Data Source [id number] 04/19/2019 08:00:00 AM EDT [facility] Value Range Interpretation Description Data Sup porting Code Source(s) Document(s ) Platelet mean 12.1 fL [place] volume Hospital [Entitic volume] in Blood by Automated count ID Date Data Source [id number] 04/19/2019 08:00:00 AM EDT [facility] Value Range Interpretation Description Data Sup porting Code Source(s) Document(s ) Platelets 148 [place] [#/volume] in 10*3/uL Hospital Blood by Automated count ID Date Data Source [id number] 04/19/2019 08:00:00 AM EDT [facility] Value Range Interpretation Description Data Sup porting Code Source(s) Document(s ) Erythrocyte 14.4 % [place] distribution Hospital width [Ratio] by Automated count ID Date Data Source [id number] 04/19/2019 08:00:00 AM EDT [facility] Name Value Range Interpretation Description Data Sup porting Code Source(s) Document(s ) Erythrocyte mean 31.9 [place] corpuscular g/dL Hospital hemoglobin concentration [Mass/volume] by Automated count ID Date Data Source [id number] 04/19/2019 08:00:00 AM [facility] Value Range Interpretation Description Data Sup porting Code Source(s) Document(s ) Erythrocyte 27.1 pg [facility] corpuscular hemoglobin [Entitic mass] by Automated count ID Date Data Source [id number] 04/19/2019 08:00:00 AM [facility] Value Range Interpretation Description Data Sup porting Code Source(s) Document(s ) Erythrocyte 85.1 fL [facility] corpuscular volume [Entitic volume] by Automated count ID Date Data Source [id number] 04/19/2019 08:00:00 AM [facility] Value Range Interpretation Description Data Sup porting Code Source(s) Document(s ) Hematocrit 32.0 % [place] [Volume Hospital Fraction] of Blood by Automated count ID Date Data Source [id number] 04/19/2019 08:00:00 AM [facility] Value Range Interpretation Description Data Sup porting Code Source(s) Document(s ) Hemoglobin 10.2 g/dL [place] [Mass/volume] Hospital in Blood ID Date Data Source [id number] 04/19/2019 08:00:00 AM [facility] Value Range Interpretation Description Data Sup porting Code Source(s) Document(s ) Erythrocytes 3.76 [place] [#/volume] in 10*6/uL Hospital Blood by Automated count ID Date Data Source [id number] 04/19/2019 08:00:00 AM [facility] Value Range Interpretation Description Data Sup porting Code Source(s) Document(s ) Leukocytes 12.1 [place] [#/volume] in 10*3/uL Hospital Blood by Automated count ID Date Data Source [id number] 04/17/2019 02:00:00 AM EDT [facility] Value Range Interpretation Code Description Data Ilene rce(s) Supporting Document(s ) READ BACK Yes/RN [facility] ID Date Data Source [id number] 04/17/2019 02:00:00 AM EDT [facility] Value Range Interpretation Code Description Data Ilene rce(s) Supporting Document(s ) NOTE WHO DESMOND MERRILL [facility] ID Date Data Source [id number] 04/17/2019 02:00:00 AM EDT [facility] Value Range Interpretation Code Description Data Supporting Source(s) Document(s ) METHEMOGLOBIN 1.3 % [facility] ID Date Data Source [id number] 04/17/2019 02:00:00 AM EDT [facility] Value Range Interpretation Description Data Sup porting Code Source(s) Document(s ) CARBOXYHEMOGLOBIN 0.6 % [facility] ID Date Data Source [id number] 04/17/2019 02:00:00 AM EDT [facility] Value Range Interpretation Code Description Data Ilene rce(s) Supporting Document(s ) ABG TEMP 98.0 [facility] ID Date Data Source [id number] 04/17/2019 02:00:00 AM EDT [facility] Value Range Interpretation Code Description Data Ilene rce(s) Supporting Document(s ) FIO2 50 % [facility] ID Date Data Source [id number] 04/17/2019 02:00:00 AM EDT [facility] Value Range Interpretation Code Description Data Ilene rce(s) Supporting Document(s ) ABG BE -6.6 mmol/L [facility] ID Date Data Source [id number] 04/17/2019 02:00:00 AM EDT [facility] Value Range Interpretation Code Description Data Ilene rce(s) Supporting Document(s ) ABG O2SAT 31 % [facility] ID Date Data Source [id number] 04/17/2019 02:00:00 AM EDT [facility] Value Range Interpretation Code Description Data Ilene rce(s) Supporting Document(s ) ABG O2SAT 31 % [facility] ID Date Data Source [id number] 04/17/2019 02:00:00 AM EDT [facility] Value Range Interpretation Code Description Data Ilene rce(s) Supporting Document(s ) ABG HCO3 22 mmol/L [facility] ID Date Data Source [id number] 04/17/2019 02:00:00 AM EDT [facility] Value Range Interpretation Code Description Data Ilene rce(s) Supporting Document(s ) ABG PO2 17 mm[Hg] [facility] ID Date Data Source [id number] 04/17/2019 02:00:00 AM EDT [facility] Value Range Interpretation Code Description Data Ilene rce(s) Supporting Document(s ) ABG PCO2 53 mm[Hg] [facility] ID Date Data Source [id number] 04/17/2019 02:00:00 AM EDT [facility] Value Range Interpretation Code Description Data Ilene rce(s) Supporting Document(s ) ABG PH 7.23 [facility] ID Date Data Source [id number] 04/17/2019 02:00:00 AM EDT [facility] Value Range Interpretation Code Description Data Ilene rce(s) Supporting Document(s ) ABG MODE Venti Mask [facility] ID Date Data Source [id number] 04/17/2019 02:00:00 AM EDT [facility] Name Value Range Interpretation Code Description Data Supporting Source(s) Document(s ) ABG SITE Cord- [facility] ID Date Data Source [id number] 04/17/2019 02:00:00 AM EDT [facility] Name Value Range Interpretation Code Description Data Supporting Source(s) Document(s ) ABG SOURCE ARTERIAL [facility] ID Date Data Source [id number] 04/17/2019 02:00:00 AM EDT [facility] Value Range Interpretation Code Description Data Ilene rce(s) Supporting Document(s ) THERESA TEST POSITIVE [facility] ID Date Data Source [id number] 2019 08:51:00 PM EDT [facility] Name Value Range Interpretation Description Data Sup porting Code Source(s) Document(s ) Treponema NON-REACT [place] pallidum [facility] IgG+IgM Ab [Presence] in Serum ID Date Data Source [id number] [facility] Description Data Sup porting Code Source(s) Document(s ) Urate 6.4 mg/dL [place] [[facility] e] in Serum or Plasma ID Date Data Source [id number] [facility] Interpretation Description Data Sup porting Code Source(s) Document(s ) Lactate 225 U/L [facility] [Enzymatic activity/volume] in Serum or Plasma ID Date Data Source [id number] 2019 08:51:00 PM EDT [facility] Name Value Range Interpretation Description Data Sup porting Code Source(s) Document(s ) Aspartate 21 U/L [facility] amin[facility] [Enzymatic Hospital activity/volume] in Serum or Plasma ID Date Data Source [id number] 2019 08:51:00 PM EDT [facility] Name Value Range Interpretation Description Data Sup porting Code Source(s) Document(s ) Alanine 11 U/L [facility] amin[facility] [Enzymatic Hospital activity/volume] in Serum or Plasma ID Date Data Source [id number] 2019 08:51:00 PM EDT [facility] Name Value Range Interpretation Description Data Sup porting Code Source(s) Document(s ) Alkaline 177 U/L [place] [facility] [Enzymatic activity/volume ] in Serum or Plasma ID Date Data Source [id number] 2019 08:51:00 PM EDT [facility] Name Value Range Interpretation Description Data Sup porting Code Source(s) Document(s ) Bilirubin.t 0.5 mg/dL [facility] [Mass/volum e] in Serum or Plasma ID Date Data Source [id number] [facility] Value Range Interpretation Code Description Data Ilene rce(s) Supporting Document(s ) [facility]in[facility]4 [facility]] in Serum or Plasma ID Date Data Source [id number] 2019 [facility] Value Range Interpretation Description Data Sup porting Code Source(s) Document(s ) Albumin 3.9 g/dL [place] [[facility] ] in Serum or Plasma ID Date Data Source [id number] 2019 08:51:00 PM EDT [facility] Name Value Range Interpretation Description Data Sup porting Code Source(s) Document(s ) Protein 6.7 g/dL [place] [[facility] ] in Serum or Plasma ID Date Data Source [id number] 2019 08:51:00 PM EDT [facility] Name Value Range Interpretation Description Data Sup porting Code Source(s) Document(s ) Calcium 9.7 mg/dL [place] [[facility] ] in Serum or Plasma ID Date Data Source [id number] 2019 08:51:00 PM EDT [facility] Name Value Range Interpretation Code Description Data Ilene rce(s) Supporting Document(s ) Urea 11.0 [place] nitrogen/Cre [facility] atinine [Mass Ratio] in Serum or Plasma ID Date Data Source [id number] 2019 08:51:00 PM EDT [facility] Name Value Range Interpretation Description Data Sup porting Code Source(s) Document(s ) Creatinine 1.0 mg/dL [place] [Mass/volume] Hospital in Serum or Plasma ID Date Data Source [id number] 2019 08:51:00 PM EDT [facility] Value Range Interpretation Description Data Sup porting Code Source(s) Document(s ) Urea 11 mg/dL [facility] [Mass/volume ] in Serum or Plasma ID Date Data Source [id number] 2019 08:51:00 PM EDT [facility] Name Value Range Interpretation Code Description Data Ilene rce(s) Supporting Document(s ) Anion gap in 14 [place] Serum or [facility] Plasma ID Date Data Source [id number] 2019 08:51:00 PM EDT [facility] Name Value Range Interpretation Description Data Sup porting Code Source(s) Document(s ) Carbon 24 mmol/L [place] dioxide, Hospital total [Moles/volu me] in Serum or Plasma ID Date Data Source [id number] 2019 08:51:00 PM EDT [facility] Name Value Range Interpretation Description Data Sup porting Code Source(s) Document(s ) Chloride 103 [place] [Moles/volum mmol/L Hospital e] in Serum or Plasma ID Date Data Source [id number] 2019 08:51:00 PM EDT [facility] Name Value Range Interpretation Description Data Sup porting Code Source(s) Document(s ) Potassium 4.3 [place] [Moles/volume mmol/L Hospital ] in Serum or Plasma ID Date Data Source [id number] 2019 08:51:00 PM EDT [facility] Name Value Range Interpretation Description Data Sup porting Code Source(s) Document(s ) Sodium 137 mmol/L [place] [Moles/volu Hospital me] in Serum or Plasma ID Date Data Source [id number] 2019 08:51:00 PM EDT [facility] Name Value Range Interpretation Description Data Sup porting Code Source(s) Document(s ) Glucose 79 mg/dL [place] [[facility] ] in Serum or Plasma Procedure Social History Code Duration Value Status Description Data Source(s ) Smoking 2019 Ex-smoker completed Ex-smoker (finding) [place] 10:15:00 PM EDT (finding) Hospital Vital Signs ID Date Data Source [id number] Name Value Range Interpretation Code Description Data Source(s) Mean blood 68 mm[Hg] 68 [facility] Diastolic blood 51 mm[Hg] Below low normal 51 mm[Hg] [facility] Sy[facility] 101 mm[Hg] Normal (applies to 101 mm[Hg] [facility] non-numeric [facility] Respiratory rate 16 br/min Normal (applies to 16 br/min [facility] - non-numeric [facility] results) [facility] r Peripheral Pulse 49 bpm Below low normal 49 bpm [facility] r Body temperature 98.3 [degF] 98.3 [degF] [facility] - - Temporal artery [facility] Mean blood 70 mm[Hg] 70 mm[Hg] [facility] - pressure [facility] r Diastolic blood 55 mm[Hg] Below low normal 55 mm[Hg] [facility] - pressure [facility] Systolic blood 100 mm[Hg] Normal (applies to 100 mm[Hg] [facility] - pressure non-numeric [facility] results) [facility] Respiratory rate 16 br/min Normal (applies to 16 br/min [facility] results) [facility] Peripheral Pulse 55 bpm Below low normal 55 bpm [facility] - Rate [facility] Body temperature 99.0 [degF] Normal (applies to 99.0 [degF ] [facility] results) [facility] Body height 160.000 cm 160.000 cm [facility] Body weight 49.000 kg 49.000 kg [facility] an - Measured [facility] Body surface area 1.48 1.48 [facility] Body weight 49 kg 49 kg [facility] an - Measured [facility] Body height 160 cm 160 cm [facility] Mean blood 99 mm[Hg] 99 mm[Hg] [facility] r Diastolic blood 82 mm[Hg] Normal (applies to 82 mm[Hg] [facility] - pressure non-numeric [facility] results) [facility] Systolic blood 132 mm[Hg] Normal (applies to 132 mm[Hg] [facility] - pressure non-numeric [facility] results) [facility] Respiratory rate 16 br/min Normal (applies to 16 br/min [facility] - non-numeric [facility] results) [facility] Peripheral Pulse 66 bpm Normal (applies to 66 bpm [facility] - Rate non-numeric [facility] results) [facility] Diastolic blood 46 mm[Hg] 46 mm[Hg] [facility] Systolic blood 103 mm[Hg] 103 mm[Hg] [facility] Respiratory rate 16 /min 16 /min [facility] Heart rate 54 /min 54 /min [facility] Body temperature 36.36117 36.30159 [facility] Body temperature 98.1 [degF] 98.1 [degF] [facility] Body mass index 25.0 kg/m2 25.0 kg/m2 [facility] ins (BMI) [Ratio] Hospital Body weight 142.00 142.00 [lb_av] [facility] [lb_av] Hospital Patient Treatment Plan of Care Planned Activity Planned Date Details Description Data Source (s) Meclizine Hydrochloride 03/13/2020 DOREEN mckeon - 25 MG Oral Tablet 05:11:00 PM EDT [facility]
[2020-05-17] MEDS ORDERED: CYCLOBENZAPRINE HCL 10 MG TABLET (FP) PO ONE (20:26)
[2020-05-17] MEDS ORDERED: IBUPROFEN 400 MG TABLET (FP) PO ONE ×2 (20:26→20:31)
[2020-05-17] MEDS ORDERED: CYCLOBENZAPRINE HCL 10 MG TABLET (FP) ONE (20:32)
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
== END 2020-05-17 20:44 | disposition home or self-care (01) ==
LOC: JERFT 19:26
DX: M54.2 Cervicalgia (principal); M54.5 Low back pain
CPT/HCPCS: 99283-25

== ENCOUNTER 2021-12-26 12:55 | Emergency (ER) | payer OTHER ==
[2021-12-26 13:09] VITALS: TEMP 98.3; BMI 18.8
[2021-12-26] MEDS ORDERED: METOCLOPRAMIDE HCL INJECTION 10 MG/2 ML VIAL IVPB ONE (13:41)
[2021-12-26] MEDS ORDERED: MECLIZINE HCL 25 MG TABLET (FP) PO ONE (13:41)
[2021-12-26] MEDS ORDERED: SODIUM CHLORIDE 0.9% 500 ML INFUS.BAG IV ONE (13:41)
[2021-12-26] MEDS ORDERED: MECLIZINE HCL 25 MG TABLET (FP) ONE (13:45)
[2021-12-26] MEDS ORDERED: METOCLOPRAMIDE HCL INJECTION 10 MG/2 ML VIAL ONE (13:45)
[2021-12-26 14:21] VITALS: BP 104/56; PULSE 56
[2021-12-26 14:30] LABS: BASO % 0.5 % (0-2.0); EOS % 1.3 % (0-4.5); HEMATOCRIT 39.7 % (32.4-45.2); LYMPH % 21.1 % (8-40); MCH 27.4 pg (25.7-33.7); MCHC 32.9 g/dl (32.0-36.0); MEAN CELL VOLUME 83.5 fl (80-96); MEAN PLT VOLUME 8.8 fl (7.5-11.1); MONO % 5.3 % (3.8-10.2); NEUT % 71.8 % (42.8-82.8); PLATELET COUNT 175 10^3/uL (134-434); RBC 4.75 M/mm3 (3.60-5.2); RDW 13.7 % (11.6-15.6)
[2021-12-26 14:32] LABS: URINE APPEARANCE CLEAR; URINE BILIRUBIN NEGATIVE (NEGATIVE); URINE COLOR YELLOW; URINE GLUCOSE (UA) NEGATIVE (NEGATIVE); URINE KETONE NEGATIVE (NEGATIVE); URINE LEUK ESTERASE NEGATIVE (NEGATIVE); URINE NITRITE NEGATIVE (NEGATIVE); URINE PROTEIN NEGATIVE (NEGATIVE); URINE UROBILINOGEN 0.2 mg/dL (0.2-1.0)
[2021-12-26 14:51] LABS: CALCIUM 9.7 mg/dL (8.5-10.1)
[2021-12-26 14:52] LABS: ALBUMIN 4.4 g/dl (3.4-5.0); BLOOD UREA NITROGEN 7.1 mg/dL (7-18); MAGNESIUM 2.3 mg/dL (1.8-2.4)
[2021-12-26 14:55] LABS: CREATININE 0.8 mg/dL (0.55-1.3)
[2021-12-26 14:57] LABS: BILIRUBIN,TOTAL 0.6 mg/dL (0.2-1); TOT PROT 7.5 g/dl (6.4-8.2)
== END 2021-12-26 15:33 | disposition home or self-care (01) ==
LOC: JER 12:55
PROC: 3E033GC Introduction of Other Therapeutic Substance into Peripheral Vein, Percutaneous Approach (ICD-10-PCS; principal; 2021-12-26)
DX: R42 Dizziness and giddiness (principal); R11.0 Nausea
CPT/HCPCS: 36415; 80053; 81003; 83735; 84703; 85025; 87086; 93005; 93010; 99284-25

== ENCOUNTER 2022-05-28 19:37 | Emergency (ER) | payer OTHER ==
[2022-05-28 19:41] VITALS: BP 101/69; PULSE 58; RESP 18; TEMP 98; BMI 18.6
[2022-05-28] MEDS ORDERED: MECLIZINE HCL 25 MG TABLET (FP) PO ONE (20:39)
[2022-05-28] MEDS ORDERED: SODIUM CHLORIDE 1,000 ML IV STA (20:39)
[2022-05-28] MEDS ORDERED: METOCLOPRAMIDE HCL INJECTION 10 MG/2 ML VIAL IVPB ONE (20:40)
[2022-05-28] MEDS ORDERED: METOCLOPRAMIDE HCL INJECTION 10 MG/2 ML VIAL ONE (20:45)
[2022-05-28] MEDS ORDERED: MECLIZINE HCL 25 MG TABLET (FP) ONE (20:45)
[2022-05-28 21:39] LABS: BASO % 0.7 % (0-2.0); EOS % 1.2 % (0-4.5); HEMATOCRIT 36.2 % (32.4-45.2); LYMPH % 37.6 % (8-40); MCH 27.8 pg (25.7-33.7); MCHC 33.2 g/dl (32.0-36.0); MEAN CELL VOLUME 83.8 fl (80-96); MEAN PLT VOLUME 8.9 fl (7.5-11.1); MONO % 5.4 % (3.8-10.2); NEUT % 55.1 % (42.8-82.8); PLATELET COUNT 203 10^3/uL (134-434); RBC 4.32 M/mm3 (3.60-5.2); RDW 13.2 % (11.6-15.6); WHITE BLOOD COUNT 6.4 K/mm3 (4.0-10.0)
[2022-05-28 22:06] LABS: CHLORIDE 101 mmol/L (98-107); SODIUM 140 mmol/L (136-145)
[2022-05-28 22:08] LABS: ALBUMIN 3.9 g/dl (3.4-5.0); ANION GAP 9 MMOL/L (8-16); BLOOD UREA NITROGEN 10.7 mg/dL (7-18); CALCIUM 9.1 mg/dL (8.5-10.1); CO2 30 mmol/L (21-32); GLUCOSE,RANDOM 87 mg/dL (74-106)
[2022-05-28 22:11] LABS: CREATININE 0.8 mg/dL (0.55-1.3); SGOT/AST 14 U/L (15-37)
[2022-05-28 22:12] LABS: SGPT/ALT 18 U/L (13-61)
[2022-05-28 22:14] LABS: ALK PHOS 40 U/L (45-117); TOT PROT 6.8 g/dl (6.4-8.2)
== END 2022-05-28 22:42 | disposition home or self-care (01) ==
LOC: JER 19:37
PROC: 3E033GC Introduction of Other Therapeutic Substance into Peripheral Vein, Percutaneous Approach (ICD-10-PCS; principal; 2022-05-28)
DX: R42 Dizziness and giddiness (principal); R11.10 Vomiting, unspecified
CPT/HCPCS: 36415; 80053; 84702; 85025; 99284-25